=== PATIENT | male | born 1955 | race Caucasian/White ===

== ENCOUNTER 2019-06-01 11:39 | Inpatient (IN) | payer OTHER ==
[2019-06-01] VITALS (23 sets, daily range): BP systolic 76–106; BP diastolic 31–61
[~2019-06-01] VITALS: Ht 177.8 cm; Wt 62.4 kg
--- NOTE | ~2019-06-01 | WRIGHTHP ---
[place], [place] PATIENT HISTORY AND PHYSICAL EXAM [id number] #: [id number] ROOM: 523 DOCTOR: CHER BREEN MD BIRTHDATE: [birth year] DOS: 06/01/2019 GASTROENDOSCOPIC REPORT HISTORY: The patient is a 63-year-old male patient who has presented with multiple medical problems and profound anemia was one. He was addressed with endoscopic assessment. He was in ICU for several days. Monitor and aggressive ulcer therapy was undertaken. His reticulocytosis was 5.3, corresponding with his anemia, transfusion has been undertaken stabilized now he is able to eat. He was transferred to regular floor for further extension of the recovery. His colonoscopy, diverticulosis, upper GI endoscopy, gastric biopsy, esophagitis, gastritis, hiatal hernia, all have been recognized and has been treated. His cognition is very limited. His labs and records daily has been follow up. His latest H and H 9.8 and 30.9. Vancomycin trough was 1.8. Antral biopsies come back and gastritis. No H. pylori are present. REVIEW OF SYSTEMS: Cannot be meaningfully obtained from him. PHYSICAL EXAMINATION: HEENT: Within normal limits. Mouth free of esophageal ulcer, thrush. NECK: Supple, no thyromegaly, no cervical lymphadenopathy. CHEST: Symmetric anatomy, COPD pattern. HEART: Normal sinus rhythm. No gallop, no murmur. ABDOMEN: Soft. No hepato-organomegaly. Bowel sounds present. No pulsatile mass. EXTREMITIES: No cyanosis, clubbing or pedal edema. NEUROLOGIC: Alert and disoriented. LABORATORY DATA: Reviewed. Records reviewed. IMPRESSION: Profound anemia, status post transfusion; gastritis, diverticulosis, hiatal hernia, all has been recognized. Blood cultures have been negative. PLAN AND DISCUSSION PLAN AND DISCUSSION: We are going to continue with PPI therapy chronically on him. Supportive feeding, addition of Ensure, increasing diet to soft diet undertaken today. His brother is managing his affairs and he is going to be advised of additional improvement in diet was organized. [place], [place] PATIENT HISTORY AND PHYSICAL EXAM [facility]: [id number] UN[facility] #: [id number] ROOM: 523 DOCTOR: CHER BREEN MD BIRTHDATE: [birth year] CHER BREEN MD CM:PHYS:PATIENT HISTORY AND PHYSICAL EXAMINATION 1547 10 CHER BREEN MD 06/08/19 1610 interface
--- NOTE | ~2019-06-01 | CON ---
[place], [place] REPORT OF CONSULTATION NAME: LAWSON GARCÍA UNIT #: [id number] ROOM: [facility] DOCTOR: CHER BREEN MD BIRTHDATE: [birth year] DOS: 06/01/2019 GASTROENDOSCOPIC REPORT HISTORY OF PRESENT ILLNESS: A 63-year-old gentleman who has presented apparently brought in by family and he has not been leaving his house. He has never seen a physician. He is taken care of by his brother at home, in extremely poor condition. He underwent a panel of blood work and was found to have hemoglobin of 5 and he is getting transfusion of packed cells. I have been consulted in this regard. The patient is noncommunicative and apparent medical data is very limited. PAST MEDICAL HISTORY: Unknown. PAST SURGICAL HISTORY: Unknown. SOCIAL HISTORY: Apparently, smoker. FAMILY HISTORY: Brother who is taking care of him. ALLERGIES: No known allergies. REVIEW OF SYSTEMS: At all cannot be communicated with him. PHYSICAL EXAMINATION: GENERAL: Reveals very ungroomed patient. VITAL SIGNS: Borderline hypotension is noticed. HEENT: Benign, extremely poor hygiene. LUNGS: No wheeze, no rhonchi. HEART: Normal sinus rhythm at the present time. ABDOMEN: Soft, appears to be. EXTREMITIES: No cyanosis, no pedal edema noticed. NEUROLOGIC: Alert and incoherent. No communication meaningfully. LABORATORY DATA: Labs and records reviewed. He is receiving transfusion. Urine for a screening of the drug was negative. Chest x-ray remained no acute pathology. CPK-MB normal. CBC: White blood cell 6, H and H of 5.6 and 19 with platelet count of 245. Comprehensive metabolic panel, renal insufficiency. BUN and creatinine 33 and 1.8. GFR of 44, potassium of 3.1, being addressed with supplementation. Liver function tests appeared to be normal. Labs reviewed, records reviewed. IMPRESSION: Profound anemia, etiology unknown. PLAN AND DISCUSSION: We are going to proceed with stabilization of this patient. I very much doubt if he is going to be compliant for cleansing enemas and such to have an evaluation endoscopically done; however, we are going to obtain a magnesium and phosphorus with this a.m. blood work. We are going to organize an EGD and colonoscopy perhaps and if that happens that we can do an EGD and colonoscopy, we may have been answer to his GI blood loss, concern, [place], [place] REPORT OF CONSULTATION NAME: LAWSON GARCÍA UNIT #: [id number] ROOM: [facility] DOCTOR: JAMSHID JACOBO,CHER BIRTHDATE: [birth year] i.e., peptic ulcer disease, occult malignancy or otherwise. CHER BREEN MD CM:CONSTR:REPORT OF CONSULTATION 04 06/02/19 0037 interface
--- NOTE | ~2019-06-01 | O ---
[place], [place] OPERATIVE NOTE NAME: LAWSON GARCÍA UNIT #: [id number] ROOM: [facility]- DOCTOR: JAMSHID JACOBO,CHER BIRTHDATE: [birth year] DOS: 06/03/2019 GASTROENDOSCOPIC REPORT HISTORY OF PRESENT ILLNESS: A 63-year-old patient who has presented with multiple medical problems, among which has been profound anemia. At the time of admission, his H and H was 5 and 19, status post transfusion and improvement. The patient with compromised cognitive capabilities last H and H post-transfusion 75 and 25. PROCEDURE: Today's procedure part of investigation is panendoscopy and colonoscopy. PREMEDICATION: Propofol, ketamine. SCOPE: Olympus forward-viewing gastroscope Q10 video. REPORT: After putting the patient in left lateral position and application of lubricant to the scope, the scope was introduced. Thereafter, under direct visualization, advanced through the length of esophagus without difficulty. Distal esophagitis secondary to reflux was noticed. Gastric pouch was entered. Hiatal hernia seen. Gastritis seen. Antral biopsy was obtained. Duodenal bulb, second and third part within normal limit. Air was suctioned out. The patient was extubated, tolerated the procedure well. IMPRESSION: Distal esophagitis, hiatal hernia, gastritis, status post biopsy. PLAN AND DISCUSSION: Protonix 40 mg daily, regular diet, clinical reassessment. CHER BREEN MD CM:OPRECORD:OPERATIVE NOTE 1433 1533 CHER BREEN MD 06/03/19 1533 interface
--- NOTE | ~2019-06-01 | CON ---
[place], [place] REPORT OF CONSULTATION NAME: LAWSON GARCÍA UNIT #: [id number] ROOM: 523 DOCTOR: OANH HUITRON MD BIRTHDATE: [birth year] DOS: 06/04/2019 ADDENDUM I agree with the assessment and plan made by the nurse practitioner, Fanny Rain. Transient fever. Follow the blood cultures and his urine cultures. Follow CBC with differential. Reviewed the labs and imaging, made the necessary changes in the note. Oanh Huitron MD CM:CONSTR:REPORT OF CONSULTATION 1623 06/09/19 0441 interface
--- NOTE | ~2019-06-01 | EKG ---
[place], [place] ELECTROCARDIOGRAM REPORT NAME: LAWSON GARCÍA UNIT #: [id number] ROOM: [facility] DOCTOR: MASSIMO DRAFT REPORT BIRTHDATE: [birth year] [facility] Test Date: 2019-06-01 Test Time: 13:27:23 Pat Name: LAWSON GARCÍA Department: Room: [facility] Gender: M Commercial Estimator: Krupa Monaco : 1955 Requested By: CRISTIANO CHUNG Order Number: [id number] Reading MD: Petra Mcnulty Measurements Intervals [place] Rate: 83 P: 66 FL: 144 QRS: 54 QRSD: 90 T: 61 QT: 488 QTc: 574 Interpretive Statements Sinus rhythm Minimal ST depression, anterolateral leads Prolonged QT interval No previous ECG available for comparison Electronically Signed On 06-02-2019 9:00:16 PDT by Petra Mcnulty CM:EKGRPT:ELECTROCARDIOGRAM REPORT 1327 0900 CRISTIANO KEYS DRAFT REPORT CRISTIANO CHUNG M.D.
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
--- NOTE | ~2019-06-01 | O ---
[place], [place] OPERATIVE NOTE NAME: LAWSON GARCÍA UNIT #: [id number] ROOM: [facility]- DOCTOR: JAMSHID JACOBO,CHER BIRTHDATE: [birth year] DOS: 06/03/2019 INDICATIONS: A 63-year-old patient who has presented with chief complaint of GI bleed, profound anemia, undergoing investigation. PROCEDURE: Today's procedure part of investigation is colonoscopy. PREMEDICATION: Propofol. SCOPE: Olympus forwarding colonoscope 10L video. DESCRIPTION OF PROCEDURE: After putting the patient in left lateral position and application of lubricant to the scope, the scope was introduced. Thereafter, under direct visualization, advanced through the length of colon with difficulty. Tortuosity of severe degree at hepatic flexure was noticed. However this overcame. Base of the cecum explored, appendiceal orifice identified, ileocecal valve was photographed. Cecum photographed. Air was suctioned out. The patient was extubated, tolerated the procedure well. IMPRESSION: Diverticulosis, rare tortuous colon, particularly at hepatic flexure, retained liquid stool all along the length of the colon with limiting visualization of detailed pathology. PLAN AND DISCUSSION: Resumption of feeding transfusion of another unit correction of potassium has isolated total bilirubin, most likely secondary to hematoma in the leg, partially and renal insufficiency, partially and possibility of bilirubin, chronic deficiency all has been recognized. CHER BREEN MD CM:OPRECORD:OPERATIVE NOTE 1433 1535 CHER BREEN MD 06/03/19 1534 interface
--- NOTE | ~2019-06-01 | CON ---
[place], [place] REPORT OF CONSULTATION NAME: LAWSON GARCÍA UNIT #: [id number] ROOM: [facility] DOCTOR: DENZEL HILTON,NOVEMBER BIRTHDATE: [birth year] DOS: 06/05/2019 HISTORY OF PRESENT ILLNESS: The patient is a 63-year-old male who was admitted from home on 06/01. He had been found by his cleaning service down on the floor with mental status change as well as a black tarry stool in his kitchen and extensive bruising, dehydration. He was also anemic. His admitting hemoglobin was 5.6. He underwent EGD and a colonoscopy, which demonstrated esophagitis, gastritis and hiatal hernia. He had originally been hypotensive that had improved and resolved. Yesterday, he developed tachycardia, again became hypotensive, had a fever of 101.4. He had had a few other low-grade temps during his hospitalization up to 100. He had a CT of the chest done yesterday, which did not demonstrate any infiltrates. He has been seen by Orthopedics due to his extensive ecchymosis that he was admitted with of the right thigh, right ankle and left knee. CT of the head with admission demonstrated chronic sinusitis of the right maxillary sinus, right ethmoid cells and bilateral sphenoid sinuses. CT of the right leg only demonstrated edema and likely contusion. CT of the abdomen and pelvis showed an enlarged prostate and some renal cysts. Lower extremity studies were negative for DVT. X-ray of the right ankle did not demonstrate any fracture. Most of these were the admitting radiologic studies that were ordered. ID is now consulted for the episode yesterday of fever, hypotension and tachypnea. He also became bradycardic this morning. He has been weaned from pressors and has improved clinically. He is alert, oriented to person, place and time and responsive, but a poor historian. He has had multiple blood cultures performed. Admitting blood cultures are negative. His MRSA screen was negative. Stool for occult blood on the was negative. UA was sent yesterday, which still showed urobilirubin, was negative for leukocyte esterase, has been sent for culture. His drug screen was clean when he was admitted. WBCs have been running fairly low this morning at 3.5 and they were originally 6.9 on admission. He had originally had acute kidney injury at the time of admission with a creatinine of 1.89, which has improved to 0.94. Vancomycin, Zosyn, and Levaquin were started yesterday empirically again due to fever and hypotension, concern for sepsis. He has a PICC line that was just placed on the . Patient himself is alert, responsive, again is a poor historian, but he denies pain currently. He does urinate frequently, some question as to whether or not that is painful. Some of his answers are inconsistent. His urine has been dark per nursing and he passes approximately 100 mL at a time. He had bladder scan done, which does not demonstrate any significant post-void residual. He denies nausea or vomiting. Denies diarrhea. Little cough, no shortness of breath. After the fever yesterday of 101.4, he has had no further fevers, no rashes. He does have extensive ecchymosis that he is not sure how he got. The staff has assumed that he fell at home. PAST MEDICAL HISTORY: None other than tobacco abuse. PAST SURGICAL HISTORY: None. SOCIAL HISTORY: He lives alone, has cleaning service come in. He has a brother who assists him and bring him his cigarettes. Nursing states that they have been told he smokes 3-4 packs of cigarettes per day. The patient states he does not smoke more than a pack a day. Denies any alcohol use or illicit drug use. [place], [place] REPORT OF CONSULTATION NAME: LAWSON GARCÍA UNIT #: [id number] ROOM: [facility] DOCTOR: DENZEL HILTON,NOVEMBER BIRTHDATE: [birth year] FAMILY MEDICAL HISTORY: Parents are , cause unknown. ALLERGIES: No known drug allergies. CURRENT MEDICATIONS: Include vancomycin, Zosyn, Levaquin, Tylenol, DuoNebs, vitamin D, folic acid, Ativan, Nicoderm patch, Zofran, morphine, Tylenol p.r.n. LABORATORY DATA: Cultures as reviewed above. Total bilirubin 2.9, direct bilirubin 1.2, indirect bilirubin 1.7. WBCs 3.5, platelets 98, neutrophils 66.4. BUN 12, creatinine 0.94. LFTs within normal limits. Alkaline phosphatase 65. REVIEW OF SYSTEMS: Limited. The patient is responsive for most questions, though difficult to obtain history from. Seems to have some underlying psychiatric disorder or even possibly along the lines of autistic spectrum. PHYSICAL EXAMINATION: VITAL SIGNS: Temperature 98.8, pulse 58, respirations 22, BP 93/46. GENERAL: A 63-year-old male, in no acute distress, alert, responsive, lying in bed. HEAD, EYES, EARS, NOSE AND THROAT: Normocephalic, atraumatic. Pupils equal, round and reactive to light. Nares, no drainage. THROAT: No exudates. No thrush. Edentulous. NECK: Supple. LUNGS: Clear to auscultation bilaterally. Respirations even and unlabored. HEART: Regular rhythm. No murmur appreciated. ABDOMEN: Soft, nondistended, nontender. Positive bowel sounds. EXTREMITIES: +1 edema bilateral lower extremities, extensive ecchymosis of the right thigh as well as right ankle and left knee. No signs of erythema or cellulitis. No open wounds. SKIN: Warm, dry, free of rashes, pale, nonicteric. ASSESSMENT AND PLAN: Fever x 1, which has not recurred. He is currently on broad spectrum antibiotics pending cultures. Urine has been reflex to culture. He does urinate frequently. Seems to be inconsistent with whether or not he is having pain with urination. Blood cultures are pending. We will continue the broad spectrum antibiotics pending culture results. NOVEMBER YOBANI MAHONEY [place], [place] REPORT OF CONSULTATION NAME: LAWSON GARCÍA UNIT #: [id number] ROOM: [facility] DOCTOR: DENZEL HILTON BIRTHDATE: [birth year] Oanh Parmar MD CM:CONSTR:REPORT OF CONSULTATION 1506 06/05/19 1524 interface
[2019-06-01 12:36] LABS: MEAN CORPUSCULAR HGB 28.3 pg (27.0-31.0); MEAN CORPUSCULAR HGB CONC 28.6 g/dl (33.0-37.0); MEAN PLATELET VOLUME 11.1 fl (9.6-12.3); NUCLEATED RED BLOOD CELL 0.4 % (0.0-0.0); PLATELET COUNT AUTOMATED 248 10*3/uL (130-400); RED BLOOD COUNT 1.98 10*6/uL (4.50-5.90); RED CELL DISTRI WIDTH 18.3 % (0-14.5); WHITE BLOOD COUNT 6.9 10*3/uL (4.8-10.8)
[2019-06-01 12:52] LABS: ALBUMIN 2.8 gm/dl (3.1-4.5); CREATININE 1.89 mg/dL (0.70-1.30); POTASSIUM 3.1 mmol/L (3.5-5.1); TOTAL PROTEIN 7.2 gm/dL (6.4-8.2)
[2019-06-01 12:55] LABS: TOTAL CELLS COUNTED 100 #CELLS
[2019-06-01 12:56] LABS: PLATELET SUFFICIENCY NORMAL (NORMAL); POLYCHROMASIA SLIGHT
[2019-06-01 12:57] LABS: HEMOGLOBIN 5.6 g/dl (14.0-18.0)
[2019-06-01 12:58] LABS: HEMATOCRIT 19.6 % (42.0-52.0)
--- NOTE | 2019-06-01 12:58 | NUR ---
DR CHUNG NOTIFIED OF PT'S H&H @ 5.6 & 19.6 PER LAB.
--- NOTE | 2019-06-01 14:15 | NUR ---
A 63yr old male, admitted to ICCU, under the services of ELISHA Clemens DO with a diagnosis of Anemia. Chief complaint is found at home with feces on the floor, ecchymosis all over body, rt leg > left. Patient arrived via stretcher from ER. Monitor applied. Initial assessment completed. Vital signs taken and recorded. See assessment for past medical history, medications and allergies. Patient and/or family oriented to unit. [facility] visitation policy reviewed. Clothing/patient valuable form completed. HANG LYNCH
--- NOTE | 2019-06-01 15:08 | NUR ---
Occupational therapy orders received as well as nursing screen. Patient's chart has been reviewed. Will follow up with patient when appropriate for completion of the OT evaluation and POC. Thank you. Monica Sarabia, OTR/L
--- NOTE | 2019-06-01 15:16 | NUR ---
PATTIE AND DR SANTOS'S COMMERCIAL CONSTRUCTION PROJECT MANAGER BOTH INFORMED THAT STAT COMPETENCY EVAL IS REQUIRED. PT IS REFUSING TO GIVE CONSENT FOR BLOOD TRANSFUSION AT THIS TIME, IN SPITE OF HIS PAPER BAG MACHINE OPERATOR AND BROTHER TALKING TO HIM, ATTEMPTING TO CONVINCE HIM.
--- NOTE | 2019-06-01 15:21 | NUR ---
Spoke with Katarina Ordonez [facility] regarding competency. Katarina stated the courts do not recognize competency evaluations from MANAGER MONITORING, it must be psycologist or physician. She also stated, ethically, you can give life saving treatment is if is a life threatening sitation. If the situation is "urgent" and he is stating he does not want treatment, and has not been deemed incompetent, you cannot proceed with treatment.
--- NOTE | 2019-06-01 16:06 | NUR ---
DR SANTOS HERE TO SEE PATIENT.
[2019-06-01 16:44] LABS: BILIRUBIN 3+ (NEGATIVE); BLOOD NEGATIVE (NEGATIVE); CLARITY SL CLOUDY (CLEAR); GLUCOSE NEGATIVE (NEGATIVE); KETONE NEGATIVE (NEGATIVE); LEUKO ESTERASE TRACE (NEGATIVE); NITRITE POSITIVE (NEGATIVE); PH 5.5 (5.0-9.0); SPECIFIC GRAVITY 1.015 (1.005-1.030); UROBILINOGEN >= 8.0 E.U./dl (0.2-1.0)
[2019-06-01 16:48] LABS: COLOR ORANGE (YELLOW)
[2019-06-01 16:52] LABS: MUCOUS 1+
[2019-06-01 16:54] LABS: URINE AMPHETAMINES < 1000 (1000ng/ml); URINE BARBITURATES < 200 (200ng/ml); URINE BENZODIAZEPINES < 200 (200ng/ml); URINE CANNABINOIDS (THC) < 50 (50ng/ml); URINE COCAINE < 300 (300ng/ml); URINE METHADONE < 300 (300ng/ml); URINE OPIATES < 300 (300ng/ml)
[2019-06-01 16:58] LABS: URINE PHENCYCLIDINE < 25 (25ng/ml)
--- NOTE | 2019-06-01 17:23 | NUR ---
SEE spoke with the patients brother Marc Branch about DPOA-HC. Patients brother stated that he was appointed to be a financial service representative for the patient but not DPOA-HC. He stated that in the event the patient was deamed incompetent he would gladly step in and make the decisions for the patient. HEARING AID ASSEMBLY SUPERVISOR explained to him that Dr. Medrano and Katarina Ordonez were both notified of needing a competency evaluation. HEARING AID ASSEMBLY SUPERVISOR explained that Katarina had stated she is unable to do that. HEARING AID ASSEMBLY SUPERVISOR explained again the Dr. Medrano was notified and aware. Patients brother understood. SEE spoke with Dr. Wells about the hospital policy about designating a Healthcare Surrogate Selection. Per Inpatient Director this policy is in effect. SEE provided Dr. Wells with a copy of this policy if it is needed. SEE to follow respectively. -SEE Shea
--- NOTE | 2019-06-01 18:13 | NUR ---
PACKED CELLS [id number] CHECKED BY MYSELF AND SARAH PHOENIX. STARTED AT KVO RATE AND PT IN CONSTANT ATTENDANCE. NO APPARENT REACTION. INFUSION RATE INCREASED TO 150/HR.
--- NOTE | 2019-06-01 18:23 | NUR ---
DR MEJIA NOTIFIED OF CONSULTATION.
--- NOTE | 2019-06-01 18:39 | NUR ---
DR MEJIA HAS BEEN NOTIFIED OF CONSULTATION. PALLIATIVE CARE CONSULT CALLED.
--- NOTE | 2019-06-01 19:11 | NUR ---
PT WOULD ONLY DRINK 1 TO 2 SIPS OF READICAT. HE WAS ACCOMPANIED TO RADIOLOGY FOR MULTIPLE CT'S. TOLERATED WELL. TRANSFUSION CONTINUING WITHOUT SIGNS OF REACTION.
--- NOTE | 2019-06-01 19:15 | NUR ---
DR BREEN HAS BEEN NOTIFIED OF CONSULTATION.
--- NOTE | 2019-06-01 22:00 | NUR ---
PATIENT BATHED AFTER BEING INCONTINENT OF STOOL AND URINATING ON THE FLOOR.
[2019-06-02] VITALS (42 sets, daily range): BP systolic 80–120; BP diastolic 40–90
--- NOTE | 2019-06-02 03:11 | NUR ---
PATIENT WAS INCONTINENT OF LOOSE STOOL.
--- NOTE | 2019-06-02 04:33 | NUR ---
PATIENT IS INCONTINENT OF BOWEL AND BLADDER PATIENT HAS BEEN ENCOURAGED TO CALL FOR HELP BUT HE REFUSES HE TURNS ON HIS RIGHT SIDE AND URINATES OFF THE SIDE OF THE BED. THE PATIENT IS NOTED TO HAVE 2 URINALS IN THE BED WITH HIN ONE ON HE SIDE WITHIN REACH. PATIENT ALSO WAS INCONTINENT OF LOOSE STOOL SMALL AMOUNTS PATIENTS ENTIRE BED WAS CHANGED AT THIS TIME. AND PATIENT WAS AGAIN MADE OF AWARE OF WHERE HIS URINALS ARE AND ARE IN VIEW AND REACH OF BOTH OF THEM.
[2019-06-02 06:12] LABS: ALBUMIN 2.7 gm/dl (3.1-4.5); BUN 26 mg/dl (7-24); CHLORIDE 107 mmol/L (98-107); CHOLESTEROL 79 mg/dL (<200); CREATININE 1.24 mg/dL (0.70-1.30); PHOSPHOROUS 2.3 mg/dL (2.5-4.9); POTASSIUM 2.9 mmol/L (3.5-5.1); SGOT/AST 14 IU/L (3-35); SGPT/ALT 15 U/L (12-78); SODIUM 138 mmol/L (136-145); TOTAL PROTEIN 5.9 gm/dL (6.4-8.2); TRIGLYCERIDES 161 mg/dl (<150); VLDL CHOLESTEROL 32 mg/dL (6-40)
[2019-06-02 06:19] LABS: ALKALINE PHOSPHATASE 74 U/L (45-117); HDL CHOLESTEROL 14 mg/dl (40-60); LDL CHOLESTEROL 33 mg/dL (9-159)
[2019-06-02 07:17] LABS: HEMATOCRIT 22.8 % (42.0-52.0); MEAN CORPUSCULAR HGB 27.5 pg (27.0-31.0); MEAN CORPUSCULAR HGB CONC 30.3 g/dl (33.0-37.0); MEAN PLATELET VOLUME 11.1 fl (9.6-12.3); NUCLEATED RED BLOOD CELL 0.4 % (0.0-0.0); PLATELET COUNT AUTOMATED 181 10*3/uL (130-400); RED BLOOD COUNT 2.51 10*6/uL (4.50-5.90); RED CELL DISTRI WIDTH 21.2 % (0-14.5); WHITE BLOOD COUNT 5.1 10*3/uL (4.8-10.8)
[2019-06-02 07:26] LABS: MEAN CELL VOLUME 90.8 fl (80.0-94.0)
--- NOTE | 2019-06-02 07:30 | NUR ---
Alert, oriented to self, knows he is in [place] and today is does not make eye contact, speech is rambling about multiple things, stating this is the ambulances bed and it must go back, he does not know the president cause "i dont watch tv" does not know the next holiday, can not verbalize what to eat on "thanskgiving Dr Ruff called with am labs, nad is insisting that staff cut all his hair and shave him as because it it an infection risk pt has dark purple bruising encircling his right thigh, multiple other scattered bruised areas levaphed has been turned off for map>70 PICC consent given by brother
[2019-06-02 07:39] LABS: TOTAL CELLS COUNTED 100 #CELLS
[2019-06-02 07:40] LABS: PLATELET SUFFICIENCY NORMAL (NORMAL); POLYCHROMASIA SLIGHT
[2019-06-02 07:42] LABS: HEMOGLOBIN 6.9 g/dl (14.0-18.0)
[2019-06-02 08:34] LABS: VITAMIN D, 25-HYDROXY 10.3 ng/mL (30-100)
--- NOTE | 2019-06-02 08:57 | NUR ---
PT REFUES TO TAKE POTASSIUM PO SPIT OUT THE DOCULAX ( COLO PREP) REFUSES TO TAKE ANYTHING BUT JUST A FEW SIPS OF JUICE/GINGERALE
--- NOTE | 2019-06-02 08:58 | NUR ---
THIRD RBC STARTED
--- NOTE | 2019-06-02 09:30 | NUR ---
zofran for c/o occ nausea has been effective
--- NOTE | 2019-06-02 09:40 | NUR ---
PTS THREE CLEANING LADIES ARE HERE AND THEY HAVE TALKED TO PT ABOUT GETTING HIS HAIR CUT AND SHAVING, PT AGREEABLE TO BOTH, THE MATTED HAIR HAS BEEN CUT OFF, PT IS CONTENT AND IS NOW WANTING TO TAKE A NAP
--- NOTE | 2019-06-02 10:00 | NUR ---
Team Lead in to see patient with palliative care nurse. Patient's speech is non-sensical. Deborah Chaves, palliative care nurse practitioner, will follow with patient on Thursday. acoustical material worker following.
--- NOTE | 2019-06-02 10:16 | NUR ---
SPEECH PATHOLOGY Orders for modified barium swallow study received. Chart review completed. Clinician was informed by radiology that MBS was canceled due to patient having another test and having to be NPO/liquid diet. Will attempt MBS on later date. Thank you for this referral. Rodger Bautista MA [facility]-CONTINUOUS PROCESS COFFEE ROASTER
--- NOTE | 2019-06-02 10:30 | NUR ---
BROTHER AMY IS HERE TO VISIT, UPDATED ON HAIRCUT, BROTHER IS MORE THAN HAPPY ABOUT THE HAIR CUT AND THE LADIES WANTING TO SHAVE PT WHEN THEY RETURN TONIGHT, WHICH [place] IS AGREEABLE TO , PER AMY "DO WHATEVER HE WANTS TO DO WITH HIS HAIR AND ANDRE" BROTHER UPDATED ON PTS LABS/TOMORROWS PROCEDURE
--- NOTE | 2019-06-02 10:39 | NUR ---
Per Discharge meeting today, it was expressed from Dr. Kc that he was told our facility could do anything to help the patient but cut his hair. LABORER ELECTROPLATING returned from the Discharge meeting and was notified of the patients hair being cut by the Nurse. The patient has been deamed incompetent and the patients brother Marc is to make the decision for the patient at this time. LABORER ELECTROPLATING spoke with Ekta about the situation and she stated "Arrest Me". LABORER ELECTROPLATING explained that was not the LABORER ELECTROPLATING intention but the brother should have the decision to cut the hair not the patient nor his cleaning ladies who were at beside. LABORER ELECTROPLATING asked if the brother was contacted and Ekta stated "No". LABORER ELECTROPLATING reached out to the brother to inform him of this and left a message for return call. LABORER ELECTROPLATING reached out to RN Supervisior Ilsa and informed her of the situation. LABORER ELECTROPLATING reached out to Dr. Kc, and Dr. Jorgensen answered LABORER ELECTROPLATING infomred her of the sitution as well. RN Hospitalist Coordinator-Ashley is also aware. -SEE Shea LSW
--- NOTE | 2019-06-02 12:34 | NUR ---
SEE was able to speak with the patient brother as the patients brother was on his way out the buliding. Marc stated he was okay with the patients hair being cut and that he does look better. Marc stated that if the patient is okay with his montes being cut that would be fine, but he will not force his brother to do so unless there is a medical reason behind it. -SEE Shea
[2019-06-02 13:10] LABS: BASO % 0.4 % (0.0-1.0); EOS # 0.1 10*3/uL (0.0-0.4); EOS % 2.6 % (1.0-4.0); HEMATOCRIT 24.2 % (42.0-52.0); HEMOGLOBIN 7.7 g/dl (14.0-18.0); LYMPH # 0.9 10*3/uL (1.3-4.4); LYMPH % 19.3 % (27.0-41.0); MEAN CELL VOLUME 88.3 fl (80.0-94.0); MEAN CORPUSCULAR HGB 28.1 pg (27.0-31.0); MEAN CORPUSCULAR HGB CONC 31.8 g/dl (33.0-37.0); MEAN PLATELET VOLUME 10.2 fl (9.6-12.3); MONO # 0.3 10*3/uL (0.1-1.0); MONO % 6.3 % (3.0-9.0); NEUT # 3.3 10*3/uL (2.3-7.9); NEUT % 70.8 % (47.0-73.0); NUCLEATED RED BLOOD CELL 0.4 % (0.0-0.0); PLATELET COUNT AUTOMATED 151 10*3/uL (130-400); RED BLOOD COUNT 2.74 10*6/uL (4.50-5.90); RED CELL DISTRI WIDTH 20.8 % (0-14.5); WHITE BLOOD COUNT 4.6 10*3/uL (4.8-10.8)
--- NOTE | 2019-06-02 13:20 | NUR ---
1 mg iv ativan prior to picc insertion
--- NOTE | 2019-06-02 13:28 | NUR ---
Nursing screen received and occupational therapy evaluation received. Thank you. Licha Robert OTR/L
--- NOTE | 2019-06-02 14:00 | NUR ---
Occupational Therapy evaluation completed in [facility]U with full eval to follow. Precautions include fall risk; bed/chair alarm,clear liquid diet,POINT LAY IRA,impaired cognition,poor sit and stand balance,forward flexed head/neck,high complexity level 12928. Recommend OT per pOC and SNF to enable max ability to function. Thank you. Brielle Robert OTR/l
--- NOTE | 2019-06-02 14:00 | NUR ---
TOLERATED PICC PLACEMENT WELL
--- NOTE | 2019-06-02 16:10 | NUR ---
BROTHER HERE, PT AND BROTHER ARE ARGUEMENTIVE WITH EACH OTHER AT TIMES, PT SAYS HIS HEAD FEELS COLD, BROTHER WILL BRING IN A KNIT CAP TOMORROW SURGICAL BONNET PLACED, PT BROTHER PT IS AWAYS COLD
--- NOTE | 2019-06-02 18:21 | NUR ---
PT TOOK ONE BOTTLE OF POWERADE WITH MIRALAX AND FEELS "TOO FULL" TO DRINK ANY MORE AT THIS TIME
--- NOTE | 2019-06-02 23:30 | NUR ---
PATIENT WILL NOT DRINK ANYMORE OF THE MIRALAX PREP FOR COLO SAID HIS BELLY WAS TO FULL ALREADY.
[2019-06-03] VITALS (36 sets, daily range): BP systolic 71–106; BP diastolic 32–56
--- NOTE | 2019-06-03 04:03 | NUR ---
PATIENT BATHED AND FLEETS ENEMA GIVEN AND FOLLOWED BY TAP WATER ENEMA'S TILL CLEAR. PATIENT DID NOT TOLERATE WELL AND WAS YELLING AFTER FINISHED THE PATIENT CALMED DOWN AND WENT RIGHT TO SLEEP.
[2019-06-03 05:02] LABS: ALBUMIN 2.5 gm/dl (3.1-4.5); ALKALINE PHOSPHATASE 71 U/L (45-117); BUN 21 mg/dl (7-24); CHLORIDE 106 mmol/L (98-107); CREATININE 1.19 mg/dL (0.70-1.30); POTASSIUM 3.2 mmol/L (3.5-5.1); SGOT/AST 14 IU/L (3-35); SGPT/ALT 16 U/L (12-78); SODIUM 137 mmol/L (136-145); TOTAL PROTEIN 5.7 gm/dL (6.4-8.2)
--- NOTE | 2019-06-03 05:45 | NUR ---
PATIENT RECIEVED ANOTHER TAP WATER ENEMA. PATIENT TOLERATED THIS ONE BETTER. PATIENT HAS RECIEVED THREE ALL TOGETHER.
[2019-06-03 06:26] LABS: BASO % 0.2 % (0.0-1.0); EOS # 0.1 10*3/uL (0.0-0.4); EOS % 1.2 % (1.0-4.0); HEMATOCRIT 24.5 % (42.0-52.0); HEMOGLOBIN 7.5 g/dl (14.0-18.0); LYMPH # 0.7 10*3/uL (1.3-4.4); LYMPH % 17.2 % (27.0-41.0); MEAN CELL VOLUME 90.4 fl (80.0-94.0); MEAN CORPUSCULAR HGB 27.7 pg (27.0-31.0); MEAN CORPUSCULAR HGB CONC 30.6 g/dl (33.0-37.0); MEAN PLATELET VOLUME 11.3 fl (9.6-12.3); MONO # 0.3 10*3/uL (0.1-1.0); MONO % 6.6 % (3.0-9.0); NEUT # 3.2 10*3/uL (2.3-7.9); NEUT % 74.1 % (47.0-73.0); PLATELET COUNT AUTOMATED 149 10*3/uL (130-400); RED BLOOD COUNT 2.71 10*6/uL (4.50-5.90); RED CELL DISTRI WIDTH 20.7 % (0-14.5); WHITE BLOOD COUNT 4.3 10*3/uL (4.8-10.8)
--- NOTE | 2019-06-03 08:09 | NUR ---
ON ASSESSMENT PT AROUSES EASILY TO HIS NAME. ABLE TO TELL ME HE'S "IN HOSPITAL". DENIES PAIN OR SHORTNESS OF BREATH. PT REMAINS NPO FOR EGD/COLO THIS AM. SKIN IS WARM AND DRY. PT VOIDED 150ML DRK TEA COLORED URINE IN URINAL. MULTIPLE AGED ECCHYMOSIS CONTINUES. PICC LINE INTACT RT UPPER ARM. PT'S AUTOMATIC BP 71/32, CHECKED MANUALLY 80/40. DR QUINTANILLA(RESIDENT) NOTIFIED. NORMAL SALINE 1OOO ML BAG UP TO INFUSE 500ML OVER 30 MINUTES. BED IS IN LOW POSITION WITH WHEELS LOCKED, URINALS AVAILABLE BOTH SIDES OF THE BED. SEE ALL APPROPRIATE INTERVENTIONS.
--- NOTE | 2019-06-03 08:47 | NUR ---
BP > 90 SYSTOLIC AFTER [address]ML [address] CABALLERO HAS VISITED. IV FLUIDS TO CONTINUE AT 100ML/HR.
--- NOTE | 2019-06-03 08:58 | NUR ---
PHYSICAL THERAPY HERE. HAS PT STANDING AT THE SIDE OF THE BED, MARCHING, WITHOUT ANY SIGNS OF DIZZINESS. PT HAS RAMBLING CONVERSATION.
--- NOTE | 2019-06-03 09:00 | NUR ---
PHYSICAL THERAPY Patient seen this am 1:1 for therapy visit and was resting supine in bed upon therapist arrival. Patient identified by name / and presented with HR 64 bpm, continuous IV treatment. Patient voices no c/o's pain at this time and transfers supine to sit EOB with MOD A x 1. Patient tolerated static EOB sit x several minutes to collect himself, demonstrating forward flexed head posture and rounded shoulders. Patient needed v/c to correct seated posture, however was only able to maintain upright position for < 20 seconds. Patient performed several sit to stand transfers at bedside, MOD A, use of wh walker standing support, tolerating 1 minute 30 seconds static stand first attempt and 2 minutes on second trial, CGA X 1. Patient c/o of mild B foot pain following standing activity and returned to supine in bed, MIN A. Patient remained in bed with call light, tray table and bed alarm for safety. Patient HR increased to 82 bpm during treatment and returned to baseline after 1 minute supine rest. Will continue per POC as tolerated, total treatment time 14 minutes. Loc Gordon, SPORTS EQUIPMENT REPAIRER
--- NOTE | 2019-06-03 09:08 | NUR ---
OT NOTE Pt was seen this A.M. 1:1 for 17 minute OT session. Upon arrival pt was supine in bed. Pt identified by name and and had no complaints at this time. Pt transferred supine to sit EOB with Roxanna. Sit to stand completed from bed level with modA and use of w/w for UE support. Challenged pt's static standing tolerance needed for increased I in self care tasks and functional transfers, pt was able to tolerate aprox 2 minutes at a time before sitting due to fatigue. Throughout pt required constant verbal prompts for correcting posture and picking his head up. Throughout entire session pt was rambling on in conversation. Pt then transferred back into bed sit to supine with Roxanna. There he was left with call light in hand, tray table in place, and bed alarm activated for safety. Continue with rec D/C plan to SNF. ANDREA Conrad/Flip
--- NOTE | 2019-06-03 09:09 | NUR ---
SPEECH THERAPY Patient remains NPO this AM for EGD/colo scheduled for this date. Orders for MBS were confirmed by patient's nurse. MBS to be completed at different time/day as appropriate. Jessica Bennett MA, CCC-COAL DIGGER
--- NOTE | 2019-06-03 09:25 | NUR ---
ACID TANK LINER reached out to the patients brother to inquire about SNF placement. ACID TANK LINER left message for return call. -SEE Shea
--- NOTE | 2019-06-03 09:37 | NUR ---
SEE received call back from the patients brother Marc. Marc stated that he would be in today at 11am to see the patient. He stated that he believes the patients goal is to return home. He stated he himself is receptive to the patient going to SNF but is not sure how the patient will do. When asked about HHC. He stated he is unsure but not unwilling to discuss it with the patient. REFRIGERATION INSTALLER reminded him that it is ultimately his decision. Patients brother stated we would talk more about SNF vs HHC when he arrives today. -SEE Shea
--- NOTE | 2019-06-03 11:20 | NUR ---
Shift chart check completed.24 HR chart check completed.
--- NOTE | 2019-06-03 11:51 | NUR ---
BROTHER HAS ARRIVED. HE AND PT ARGUE ABOUT DRINKING ANY FLUIDS TILL TEST IS DONE. THERE ARE NO FLUIDS IN PT'S ROOM.
--- NOTE | 2019-06-03 12:29 | NUR ---
ORGAN TUNER ELECTRONIC spoke with the patients brother and two of his friends. Patients brother wants the patient to go home with [place], [place] with a specific request for Abigail Hummel. Abigail Hummel is his friend and Cleaning lady already. Due to the patients introvert tendency [facility] would be best for him per the brother. Patients brother asked for additional information on Passport Services, Delivered Meals, and Senior Services. ORGAN TUNER ELECTRONIC will reach out to the patients insurance to see if he has any meal benefits. Power Generation Plant Operator to follow. -SEE Shea
--- NOTE | 2019-06-03 12:45 | NUR ---
PT TO SURGERY VIA BED WITH SURGERY PERSONNEL. FAMILY TO 3RD FLOOR SURGERY AREA.
--- NOTE | 2019-06-03 14:02 | NUR ---
SEE reached out Patients Insurance and spoke with Shaista. She stated the patient does not have any food benefits. She stated that the patient would have to contact the [place] Dept f Medicaid ([phone]) and then they could appoint a Social Services Coordinator to the patient who would then be able to assist the patient with obtaining food if needed. SEE attempted to reach out ot the [place] Dept of Medicaid and was not successful to see if the patient already had a Social Services Coordinator. IMMIGRATION PATROL INSPECTOR will inform the patients brother. Patients brother has been given information on Passport Services, Senior Services, and Meals on Wheels information. -SEE Shea
--- NOTE | 2019-06-03 14:42 | NUR ---
PHYSICAL THERAPY CO-SIGN I approve of the Physical Therapy notes written above. NEMO GUTHRIE, PT, DPT
--- NOTE | 2019-06-03 15:45 | NUR ---
PT RETURNED FROM OR VIA BED. RECONNECTED TO MONITOR AND IV FLUIDS. PT DROWSY BUT COOPERATIVE. BED IN LOW POSITION WITH WHEELS LOCKED, SIDERAILS UP AND URINALS AVAILABLE ON BOTH SIDES.
--- NOTE | 2019-06-03 17:19 | NUR ---
PT ATE ABOUT 50% OF SOFT DIET FOR DINNER. TOLERATED WELL.
--- NOTE | 2019-06-03 20:00 | NUR ---
SPOKE WITH DR. BOUDREAUX REGARDING PATIENT'S HYPOTENSION THAT IS GETTING IVF WITH A HEOGLOBIN OF 7.5. PATIENT CONDITION, LABS, AND VITALS REVIEWED. ORDERS RECEIVED.
[2019-06-03 22:07] LABS: MEAN CELL VOLUME 90.6 fl (80.0-94.0); MEAN CORPUSCULAR HGB 28.3 pg (27.0-31.0); MEAN CORPUSCULAR HGB CONC 31.3 g/dl (33.0-37.0); MEAN PLATELET VOLUME 10.7 fl (9.6-12.3); PLATELET COUNT AUTOMATED 112 10*3/uL (130-400); RED BLOOD COUNT 2.12 10*6/uL (4.50-5.90); RED CELL DISTRI WIDTH 20.2 % (0-14.5); WHITE BLOOD COUNT 3.3 10*3/uL (4.8-10.8)
[2019-06-03 22:15] LABS: HEMATOCRIT 19.2 % (42.0-52.0)
--- NOTE | 2019-06-03 22:20 | NUR ---
DR. BOUDREAUX NOTIFIED OF CRITICAL LAB RESULTS OF H&H. ORDERS RECEIVED.
[2019-06-03 22:54] LABS: MICROCYTOSIS SLIGHT; PLATELET SUFFICIENCY LOW (NORMAL); TOTAL CELLS COUNTED 100 #CELLS
--- NOTE | 2019-06-03 22:55 | NUR ---
BLOOD TRANSFUSION INITIATED. PATIENT TOLERATING WELL. CALL LIGHT WITHIN REACH.
--- NOTE | 2019-06-03 23:30 | NUR ---
SPOKE WITH DR. MAYO AND DR. BOUDREAUX. ORDERS RECEIVED TO TRANSFUSE ALL 3 UNITS OF PRBC TONIGHT.
[2019-06-04] VITALS (31 sets, daily range): BP systolic 80–110; BP diastolic 40–63
--- NOTE | 2019-06-04 01:09 | NUR ---
BLOOD TRANSFUSION UNIT # 4 COMPLETED. PATIENT TOLERATED WELL. BLOOD PRESSURES HAVE IMPROVED.
[2019-06-04 07:38] LABS: BASO % 0.3 % (0.0-1.0); EOS # 0.1 10*3/uL (0.0-0.4); EOS % 1.7 % (1.0-4.0); HEMATOCRIT 28.8 % (42.0-52.0); HEMOGLOBIN 9.2 g/dl (14.0-18.0); LYMPH # 0.6 10*3/uL (1.3-4.4); LYMPH % 16.1 % (27.0-41.0); MEAN CORPUSCULAR HGB 29.4 pg (27.0-31.0); MEAN CORPUSCULAR HGB CONC 31.9 g/dl (33.0-37.0); MEAN PLATELET VOLUME 10.6 fl (9.6-12.3); MONO # 0.1 10*3/uL (0.1-1.0); MONO % 3.7 % (3.0-9.0); NEUT # 2.7 10*3/uL (2.3-7.9); NEUT % 77.1 % (47.0-73.0); PLATELET COUNT AUTOMATED 99 10*3/uL (130-400); RED BLOOD COUNT 3.13 10*6/uL (4.50-5.90); RED CELL DISTRI WIDTH 18.6 % (0-14.5); WHITE BLOOD COUNT 3.5 10*3/uL (4.8-10.8)
--- NOTE | 2019-06-04 07:44 | NUR ---
Shift chart check completed.
--- NOTE | 2019-06-04 07:44 | NUR ---
AM LABS DRAWN FROM PICC LINE WITHOUT DIFFICULTY. VSS. PT CO-OPERATIVE. MOIST NONPROD COUGH.
[2019-06-04 07:52] LABS: ALBUMIN 2.2 gm/dl (3.1-4.5); ALKALINE PHOSPHATASE 65 U/L (45-117); BUN 18 mg/dl (7-24); CHLORIDE 111 mmol/L (98-107); CREATININE 0.93 mg/dL (0.70-1.30); PHOSPHOROUS 1.9 mg/dL (2.5-4.9); POTASSIUM 3.8 mmol/L (3.5-5.1); SGOT/AST 20 IU/L (3-35); SGPT/ALT 14 U/L (12-78); SODIUM 139 mmol/L (136-145)
--- NOTE | 2019-06-04 09:21 | NUR ---
BATH DONE COMPLETE. PATIENT INCONTINENT FOR SMALL AMOUNT OF STOOL (LIGHT BROWN SOFT) AND BED IS WET (?URINE VS WATER.) RT INNER, OUTER & POSTERIOR THIGH TO ABOVE KNEE, RT ANKLE AND LEFT KNEE ECCHYMOTIC IN VARIOUS STAGES. DR ROA EXAMINED. TUBIGRIPS PLACED ON LEGS SCD FALL RISK D/T CLIMBS OUT OF BED, AND NAKITA HOSE TOO TIGHT & UPSETTING PATIENT. CHILD-LIKE DEMEANOR
--- NOTE | 2019-06-04 11:12 | NUR ---
SLEEPING AFTER BROTHER LEFT. STILL NOT WANTING TO EAT
--- NOTE | 2019-06-04 14:25 | NUR ---
PATIENT CONTINUES TO SLEEP BUT AROUSES EASILY, PT ENCOURAGED TO EAT/DRINK BUT NOT WANTING ANYTHING EXCEPT TO REST. IVF CONTINUE
[2019-06-04 15:07] LABS: BASO % 0.3 % (0.0-1.0); EOS # 0.1 10*3/uL (0.0-0.4); EOS % 2.2 % (1.0-4.0); HEMATOCRIT 28.6 % (42.0-52.0); HEMOGLOBIN 9.1 g/dl (14.0-18.0); LYMPH # 0.7 10*3/uL (1.3-4.4); MEAN CELL VOLUME 91.7 fl (80.0-94.0); MEAN CORPUSCULAR HGB 29.2 pg (27.0-31.0); MEAN CORPUSCULAR HGB CONC 31.8 g/dl (33.0-37.0); MONO # 0.2 10*3/uL (0.1-1.0); MONO % 4.7 % (3.0-9.0); NEUT # 2.2 10*3/uL (2.3-7.9); NEUT % 68.2 % (47.0-73.0); NUCLEATED RED BLOOD CELL 0.6 % (0.0-0.0); PLATELET COUNT AUTOMATED 103 10*3/uL (130-400); RED BLOOD COUNT 3.12 10*6/uL (4.50-5.90); WHITE BLOOD COUNT 3.2 10*3/uL (4.8-10.8)
--- NOTE | 2019-06-04 15:08 | NUR ---
DR JHA CALLED WITH ELEVATED TEMP 101.4 & RR RATE 28-30. PT CHILLS. REQUESTED PO TYLENOL & AEROSAL TREATMENTS TO ASSIST WITH LOOSENING UP MUCOUS.
--- NOTE | 2019-06-04 15:28 | NUR ---
DR PRATER CAME TO SEE THE PATIENT & REASSESS AFTER CHANGES CALLED. ORDERS RECEIVED FOR CT CHEST & ANTIBIOTICS. COIL CLEANER CALLED & UPDATED. DR MEJIA ALSO ROUNDED JUST PRIOR TO DR PRATER AND ASSESSED PATIENT
[2019-06-04 16:53] LABS: ALBUMIN 2.2 gm/dl (3.1-4.5); ALKALINE PHOSPHATASE 63 U/L (45-117); BUN 18 mg/dl (7-24); CHLORIDE 111 mmol/L (98-107); POTASSIUM 4.2 mmol/L (3.5-5.1); SGOT/AST 24 IU/L (3-35); SGPT/ALT 13 U/L (12-78); SODIUM 139 mmol/L (136-145)
[2019-06-04 16:55] LABS: TROPONIN I 0.063 ng/ml (<0.045)
--- NOTE | 2019-06-04 17:35 | NUR ---
PER THE BROTHER HE KNOWS OF NO HEALTH HISTORY - WHEN ASKED ABOUT WHEN HE WAS A CHILD THE BROTHER SAID JUST CHILDHOOD LIKE MEASELS OR MAYBE CHICKEN POX
--- NOTE | 2019-06-04 19:10 | NUR ---
24 HR chart check completed.
[2019-06-04 19:48] LABS: BILIRUBIN 1+ (NEGATIVE); BLOOD 1+ (NEGATIVE); CLARITY CLEAR (CLEAR); COLOR ORANGE (YELLOW); GLUCOSE NEGATIVE (NEGATIVE); KETONE NEGATIVE (NEGATIVE); LEUKO ESTERASE NEGATIVE (NEGATIVE); NITRITE NEGATIVE (NEGATIVE); PH 5.5 (5.0-9.0); SPECIFIC GRAVITY <= 1.005 (1.005-1.030)
--- NOTE | 2019-06-04 20:09 | NUR ---
DR. LIM NOTIFIED OF TROPONIN RESULTS.
[2019-06-05] VITALS (34 sets, daily range): BP systolic 93–135; BP diastolic 41–83
[2019-06-05 05:29] LABS: BASO % 0.3 % (0.0-1.0); EOS # 0.1 10*3/uL (0.0-0.4); EOS % 2.3 % (1.0-4.0); HEMATOCRIT 29.8 % (42.0-52.0); HEMOGLOBIN 9.5 g/dl (14.0-18.0); LYMPH # 0.8 10*3/uL (1.3-4.4); LYMPH % 23.1 % (27.0-41.0); MEAN CORPUSCULAR HGB 29.3 pg (27.0-31.0); MEAN CORPUSCULAR HGB CONC 31.9 g/dl (33.0-37.0); MEAN PLATELET VOLUME 10.9 fl (9.6-12.3); MONO # 0.2 10*3/uL (0.1-1.0); MONO % 6.8 % (3.0-9.0); NEUT # 2.3 10*3/uL (2.3-7.9); NEUT % 66.4 % (47.0-73.0); PLATELET COUNT AUTOMATED 98 10*3/uL (130-400); RED BLOOD COUNT 3.24 10*6/uL (4.50-5.90); RED CELL DISTRI WIDTH 18.6 % (0-14.5); WHITE BLOOD COUNT 3.5 10*3/uL (4.8-10.8)
[2019-06-05 06:01] LABS: ALBUMIN 2.1 gm/dl (3.1-4.5); ALKALINE PHOSPHATASE 65 U/L (45-117); BUN 12 mg/dl (7-24); CHLORIDE 108 mmol/L (98-107); CREATININE 0.94 mg/dL (0.70-1.30); POTASSIUM 3.4 mmol/L (3.5-5.1); SGOT/AST 15 IU/L (3-35); SGPT/ALT 13 U/L (12-78); SODIUM 138 mmol/L (136-145); TOTAL PROTEIN 5.2 gm/dL (6.4-8.2)
--- NOTE | 2019-06-05 09:17 | NUR ---
SET UP FOR BREAKFAST - PT RESP TACHY RATE 28 - PER PT NEED TO REST FIRST - VERY FATIGUED BUT CO-OPERATIVE WITH CARE.
--- NOTE | 2019-06-05 10:01 | NUR ---
[facility] CARDIOLOGY ANSWERING SERVICE NOTIFIED OF CONSULT @ 8120. PATIENT SLEEPING.
[2019-06-05 11:56] LABS: RETICULOCYTE % 5.34 % (0.50-2.50)
[2019-06-05 12:10] LABS: BILIRUBIN, DIRECT 1.2 mg/dL (0.0-0.2)
--- NOTE | 2019-06-05 14:26 | NUR ---
Hep Lock discontinued. Site asymptomatic. Pressure applied. Sterile dressing applied. WIND OPERATIONS SUPERVISOR REMOVED. Discharge instructions reviewed with patient/family. Patient receptive and verbalizes understanding. Follow-up care arranged. Written instructions given to patient/family. WENCESLAO WAGONER
--- NOTE | 2019-06-05 14:58 | NUR ---
DR PRATER ROUNDED TO SEE PATIENT - EUSEBIO DENZEL FROM ID HERE AND EXAMINED PATIENT. REQUESTED BLADDER SCAN - DONE WITH ONLY 10cc SEEN 2 HOURS AFTER LAST VOID
--- NOTE | 2019-06-05 16:04 | NUR ---
ECCHYMOSIS CONTINUES TO LEFT KNEE, RT ANKLE AND RT UPPER THIGH TO RT MID CALF POSTERIORLY (RT UPPER THIGH IS INNER, POSTERIOR TO OUTER FROM GROIN TO KNEE)
--- NOTE | 2019-06-05 18:36 | NUR ---
DR MAHONEY HERE AND SAW THE PATIENT - ORDERS RECEIVED
--- NOTE | 2019-06-05 21:53 | NUR ---
ATTEMPTED TO BATH PATIENT BUT PATIENT STATED THAT HE ALREADY HAD A BATH TO DAY. AND DOES NOT WANT ANOTHER ONE. HE SAID HE JUST WANTS TO REST.
[2019-06-06] VITALS (7 sets, daily range): BP systolic 91–117; BP diastolic 50–62
[2019-06-06 04:47] LABS: BASO % 0.3 % (0.0-1.0); EOS # 0.1 10*3/uL (0.0-0.4); EOS % 3.8 % (1.0-4.0); HEMATOCRIT 29.5 % (42.0-52.0); HEMOGLOBIN 9.3 g/dl (14.0-18.0); LYMPH # 0.7 10*3/uL (1.3-4.4); LYMPH % 25.9 % (27.0-41.0); MEAN CELL VOLUME 92.2 fl (80.0-94.0); MEAN CORPUSCULAR HGB 29.1 pg (27.0-31.0); MEAN CORPUSCULAR HGB CONC 31.5 g/dl (33.0-37.0); MEAN PLATELET VOLUME 10.7 fl (9.6-12.3); MONO # 0.2 10*3/uL (0.1-1.0); MONO % 6.6 % (3.0-9.0); NEUT # 1.8 10*3/uL (2.3-7.9); NEUT % 62.4 % (47.0-73.0); PLATELET COUNT AUTOMATED 102 10*3/uL (130-400); RED CELL DISTRI WIDTH 18.9 % (0-14.5); WHITE BLOOD COUNT 2.9 10*3/uL (4.8-10.8)
[2019-06-06 05:03] LABS: ALBUMIN 2.1 gm/dl (3.1-4.5); ALKALINE PHOSPHATASE 61 U/L (45-117); BUN 9 mg/dl (7-24); CHLORIDE 108 mmol/L (98-107); CREATININE 0.84 mg/dL (0.70-1.30); POTASSIUM 3.6 mmol/L (3.5-5.1); SGOT/AST 15 IU/L (3-35); SGPT/ALT 12 U/L (12-78); SODIUM 137 mmol/L (136-145); TOTAL PROTEIN 5.1 gm/dL (6.4-8.2)
--- NOTE | 2019-06-06 07:05 | NUR ---
DR BREEN CALLED IN TO CHECK ON PT. NO NEW ORDERS.
--- NOTE | 2019-06-06 07:11 | NUR ---
Shift chart check completed.24 HR chart check completed.
--- NOTE | 2019-06-06 07:37 | NUR ---
ON ASSESSMENT PATIENT AROUSES EASILY TO HIS NAME, COOPERATIVE, DENIES ANY PAIN OR SHORTNESS OF BREATH. PICC LINE INTACT RT UPPER ARM. BED IN LOW POSITION WITH WHEELS LOCKED. YELLOW SLIPPERS ON AND BED EXIT ALARM ON. SEE ALL APPROPRIATE INTERVENTIONS.
--- NOTE | 2019-06-06 08:21 | NUR ---
OUT OF BED TO CHAIR WITH MODERATE ASSIST, FEEDING HIMSELF BREAKFAST.
--- NOTE | 2019-06-06 08:35 | NUR ---
PHYSICAL THERAPY Patient seen this am 1:1 for therapy visit and was sitting up in bedside chair with several visitors in room upon therapist arrival. Patient identified by name / and voices no new c/o's at this time. Patient needed several v/c's to focus on task in completing all therapy this session, transfering sit to stand MIN A from low chair surface. Patient vital signs remained WFL's during entire treatment, ambulating with use of wh walker, MIN/CGA, 15'x 2 to bathroom. Patient demonstrates antalgic gait pattern secondary to c/o of B LE generalized pain during standing activity. Patient completed toilet transfer, MIN A demonstrating mild bout of confusion. Patient returned to bedside chair demonstrating modified B LE "hopping" gait pattern which he says doesn't hurt as much on his legs. Patient however was very unsteady and received v/c to return to normal gait pattern to improve safety awareness. Patient remained in bedside chair with call light, tray table and telephone. Will continue per POC as tolerated, total treatment time 14 minutes. Loc Gordon, BRIEFCASE SEWER
--- NOTE | 2019-06-06 09:48 | NUR ---
OT NOTE Pt was seen this A.M. 1:1 for 25 minute OT session. Upon arrival pt was sitting upright in the recliner with three caregivers at bedside. Pt identified by name and and had complaints of B knee pain which he was unable to rate on 0-10 pain scale. At rest pt's heart rate was 63 bpm. Sit to stand completed from chair level with Roxanna and use of w/w for UE support. Challenged pt's static standing tolerance needed for increased I in self care tasks and functional transfers. Pt was able to tolerate aprox 2 minutes at a time before sitting due to fatigue. Throughout pt required constant verbal and tactile prompts for holding his head up, pt would maintain for aprox 8 seconds at a time before requiring prompt again to correct. Functional mobility was then completed into the bathroom with Roxanna and use of w/w with verbal instructions for walker safety. There he transferred on/off standard commode with Roxanna due to low surface and safety with alignment of commode. Pt then stood sink side while washing his hands and face with Roxanna to correct retrograde postue that would occur when standing without UE support and occasional Roxanna for sequencing. Throughout standing sink side tasks pt's heart rate elevated to 81 bpm. Functional mobility then completed back to the recliner where he was left sitting upright with call light in hand, caregivers at bedside, ICCU nurse notified, and resting heart rate of 69 bpm. Continue with rec D/C plan to SNF. MARY ANN Conrad
--- NOTE | 2019-06-06 09:51 | NUR ---
PHYSICAL THERAPY HERE, AMBULATED PT IN THE ROOM. CAREGIVERS IN TO SEE PT. DR MORENO HAS VISITED. DR INIGUEZ HERE NOW TO SEE PT.
--- NOTE | 2019-06-06 10:30 | NUR ---
Full Stack Net Developer in to see patient. Discussed discharge planning with patient's brother. Discharge plans are for patient to return home with home health care services from [facility]. When medically stable he will be discharged to home with [facility]. general utility worker following.
--- NOTE | 2019-06-06 10:50 | NUR ---
ECHO BEING DONE AT THE BEDSIDE. RAVI CA IN.
--- NOTE | 2019-06-06 13:04 | NUR ---
OT NOTE Attempted to see pt this P.M. for second OT session and upon arrival pt was working with speech therapy. Will check back at a later time/date and continue with POC as indicated. ANDREA Conrad/Flip
--- NOTE | 2019-06-06 13:11 | NUR ---
SPEECH THERAPY IN TO EVALUATE PT. PT KEPT SAYING HE WASN'T HUNGRY BUT HE DID EAT ABOUT 2/3 OF HIS LUNCH. MBS CANCELLED PER HER RECOMMENDATIONS.
--- NOTE | 2019-06-06 13:23 | NUR ---
SPEECH PATHOLOGY Clinical swallowing evaluation completed due to dysphagia. Patient was admitted from home with anemia, altered mental status, dehydration and malnutrition. Intake at home was reported as poor. Patient underwent an upper GI 06/03/19 which revealed esophagitis, gastritis and hiatal hernia. He is receiving a soft diet and thin liquid. Assessment was completed at lunchtime meal. Patient was pleasant and cooperative and able to follow commands. Oral peripheral exam revealed edentulous status. Lingual/labial skills were WNL in terms of strength, ROM and coordination. He was observed with a variety of solid and thin liquid consistencies. Patient fed himself, using universal safety strategies such as small bites/sips, alternating consistencies and slow intake. He displayed no overt difficulty with any consistency. He was able to chew solids without difficulty. No cough, choke or wet vocal quality was displayed and there was no residue post swallow. Recommend he remain on present diet. Follow up therapy is not warranted as he tolerates diet and demonstrates use of safety precautions. He does not require a MBS at this time due to these results. The patient and his nurse were educated on results and jeromy. and they verbalized understanding. Refer to report in [facility] for further information. Thank you for this referral. HEIDI WNITER MSCCC-SALES REPRESENTATIVE [employer]
--- NOTE | 2019-06-06 13:28 | NUR ---
PICC LINE DRESSING CHANGED PER POLICY. PT ANXIOUS BUT COOPERATIVE.
--- NOTE | 2019-06-06 17:09 | NUR ---
OUT OF BED TO CHAIR WITH MINIMAL ASSIST. C/O "TIGHTNESS" IN HIS KNEES. TYLENOL 65O BY MOUTH GIVEN. EATING MEATLOAF/MASHED POTATOES/GRAVY. "THIS TASTES PRETTY GOOD".
--- NOTE | 2019-06-06 18:01 | NUR ---
PT ATE WELL FOR DINNER. ASSISTED BACK TO BED. VANCO TROUGH WAS 11.5, PHARMACY IS RECALCULATING DOSE.
--- NOTE | 2019-06-06 18:02 | NUR ---
EARLIER TYLENOL SOMEWHAT EFFECTIVE. PT STIFF WHEN STANDING TO GET BACK TO BED.
--- NOTE | 2019-06-06 20:20 | NUR ---
1930 RESTING IN BED WATCHING TV. PLEASANT AND COOPERATIVE. PICC LINE INTACT MIKAL. MULTIPLE ECCHYMOTIC AREAS CONT BILATERAL LOWER EXTREMITIES. PULSE OX 99% ON RA. NO DISTRESS NOTED. NO C/O'S PAIN VOICED AT PRESENT. COLOR REMAINS PALE.
--- NOTE | 2019-06-06 22:09 | NUR ---
RESTING IN BED WITH EYES CLOSED. APPEARS TO BE SLEEPING.
--- NOTE | 2019-06-06 23:39 | NUR ---
MULTIPLE TISSUES NOTED ON BEDSIDE TABLE WITH BM ON THEM. PT STATES "I CLEANED MYSELF. I JUST WENT A LITTLE BIT." STOOL NOTED ON HANDS. BOTH HANDS WASHED. REFUSES BATH. STATES " I'M JUST COMFORTABLE." TURNED TO SIDE PER REQUEST. NO STOOL NOTED ON PJ PANTS. WILL CONT TO MONITOR.
[2019-06-07] VITALS: BP 105/56
[2019-06-07 04:00] VITALS: BP 110/50
[2019-06-07 04:33] LABS: BASO % 0.4 % (0.0-1.0); EOS # 0.1 10*3/uL (0.0-0.4); HEMATOCRIT 28.8 % (42.0-52.0); HEMOGLOBIN 8.9 g/dl (14.0-18.0); LYMPH # 0.7 10*3/uL (1.3-4.4); LYMPH % 27.2 % (27.0-41.0); MEAN CELL VOLUME 94.7 fl (80.0-94.0); MEAN CORPUSCULAR HGB 29.3 pg (27.0-31.0); MEAN CORPUSCULAR HGB CONC 30.9 g/dl (33.0-37.0); MONO # 0.2 10*3/uL (0.1-1.0); MONO % 6.1 % (3.0-9.0); NEUT # 1.6 10*3/uL (2.3-7.9); NEUT % 60.2 % (47.0-73.0); PLATELET COUNT AUTOMATED 99 10*3/uL (130-400); RED BLOOD COUNT 3.04 10*6/uL (4.50-5.90); RED CELL DISTRI WIDTH 19.9 % (0-14.5); WHITE BLOOD COUNT 2.6 10*3/uL (4.8-10.8)
[2019-06-07 04:47] LABS: BUN 12 mg/dl (7-24); CHLORIDE 108 mmol/L (98-107); POTASSIUM 3.7 mmol/L (3.5-5.1); SODIUM 137 mmol/L (136-145)
--- NOTE | 2019-06-07 06:09 | NUR ---
0200 UP TO BR FOR MODERATE BM OF FORMED BROWN STOOL. TOLERATED WELL. 0600 REMAINS SLEEPING WITHOUT DISTRESS. PICC LINE INTACT MIKAL WITH STOCKINETTE IN PLACE. CONDITION GUARDED.
[2019-06-07 08:00] VITALS: BP 119/59
--- NOTE | 2019-06-07 09:34 | NUR ---
LINK AND LINK KNITTING MACHINE OPERATOR FRANCK FUENTES MADE AWARE PT IS DOWNGRADED TO NONMONITORED PT.
--- NOTE | 2019-06-07 09:40 | NUR ---
OT NOTE Pt was seen this A.M. 1:1 for 20 minute OT session. Upon arrival pt was supine in bed. Pt identified by name and and had no complaints at this time. Pt presented to therapy with a resting heart rate of 68 bpm. Pt transferred supine to sit EOB with SBA. Sit to stand completed from bed level with Roxanna SWANA followed by functional mobility into the bathroom with Roxanna NURSE LDR. Throughout pt presented with impulsive behavior, educated pt on slowing down and pt had poor carry over increasing risk of falls. There he transferred on/off standard commode with Roxanna due to low surface. Clothing management completed CGA for safety and toilet hygiene completed with CGA. Functional mobility was then completed back to the EOB where he transferred sit to supine with SBA. There he was left with call light in hand, tray table in place, resting heart rate of 73 bpm, and bed alarm activated for safety. Continue with rec D/C plan to SNF. MARY ANN Conrad
--- NOTE | 2019-06-07 10:34 | NUR ---
PHYSICAL THERAPY Patient presented to therapy in supine with head of bed elevated and bed alarm off. Patient was identified by name and on wristband. Patient gives informed consent for treatment. Patient is mumbling. Patient transferred supine to sitting at EOB with SBA. Patient performed sitting at EOB without assistance. Patient sit to stand from EOB with MIN A X 1. Patient declined use of walker saying he," doesn't need it" Patient ambulated into bathroom with DEICER FINISHER X 2 with no assistive device FOR 12' X 1. On and off commode with MIN A X 1. Patient performed ambulation back to EOB with DEICER FINISHER X 2. Patient transferred back into bed with SBA because he said he needed to rest after walking to the restroom. Patient requested to rest before doing anymore therapy. Patient was left in supine in bed with head of bed elevated, call light within reach and bed alarm activated. Patient was 1:1 with this COLLAR CLOSER LOCKSTITCH for 17 minutes total. GRIS ZHOU COLLAR CLOSER LOCKSTITCH
[2019-06-07 12:00] VITALS: BP 103/57
--- NOTE | 2019-06-07 13:15 | NUR ---
OT NOTE Attempted to see pt this P.M. for second OT session and upon arrival pt was unable to participate due to recieving a medical test. Will check back at a later time/date and continue with POC as able. ANDREA Conrad/Flip
--- NOTE | 2019-06-07 13:45 | NUR ---
PHYSICAL THERAPY Patient is down for a medical test at this time. Will check back and a later date /time. GRIS ZHOU INSPECTION SUPERVISOR
--- NOTE | 2019-06-07 14:17 | NUR ---
EXPANDING MACHINE OPERATOR spoke to the patients brother about the patient needing 24hr supervision at home. Patients brother stated he is going to contact the patients insurance to see what they would cover. EXPANDING MACHINE OPERATOR also explained that this EXPANDING MACHINE OPERATOR provided the patients family friend Abigail was given information on the Passport Services the patient may qualify for. Patients brother said he would like into it but wants the brother to go home with home healthcare. The patients brother is hopeful the patient will be able to return to his independent status as he was prior to this admission. EXPANDING MACHINE OPERATOR to follow. -SEE Shea
--- NOTE | 2019-06-07 14:24 | NUR ---
PT TRANSFERED TO ROOM 523 VIA BED AT THIS TIME.
--- NOTE | 2019-06-07 15:25 | NUR ---
Spoke to [facility] and faxed referral for home health care services
--- NOTE | 2019-06-07 15:35 | NUR ---
PATIENT RESTING QUIETLY IN BED. NO DISTRESS NOTED. RESPIRATIONS EASY, REGULAR ON RA. IV LEVAQUIN INFUSING PER ORDER. PICC LINE TO RIGHT UPPER ARM INTACT. FLUSHED WITHOUT DIFFICULTY. PT ALERT AND ORIENTED. WILL CONTINUE TO MONITOR. BED ALARM MAINTAINED FOR SAFETY. CALL LIGHT WITHIN REACH.
[2019-06-07 16:00] VITALS: BP 101/57
[2019-06-07 20:00] VITALS: BP 103/58
--- NOTE | 2019-06-07 20:21 | NUR ---
24 HR chart check completed.
[2019-06-08] VITALS: BP 105/58
[2019-06-08 06:39] LABS: BASO % 0.7 % (0.0-1.0); EOS # 0.1 10*3/uL (0.0-0.4); EOS % 3.3 % (1.0-4.0); HEMATOCRIT 30.9 % (42.0-52.0); HEMOGLOBIN 9.8 g/dl (14.0-18.0); LYMPH # 0.9 10*3/uL (1.3-4.4); LYMPH % 30.3 % (27.0-41.0); MEAN CELL VOLUME 94.5 fl (80.0-94.0); MEAN CORPUSCULAR HGB CONC 31.7 g/dl (33.0-37.0); MEAN PLATELET VOLUME 11.1 fl (9.6-12.3); MONO # 0.2 10*3/uL (0.1-1.0); MONO % 7.2 % (3.0-9.0); NEUT # 1.8 10*3/uL (2.3-7.9); NEUT % 57.5 % (47.0-73.0); PLATELET COUNT AUTOMATED 116 10*3/uL (130-400); RED BLOOD COUNT 3.27 10*6/uL (4.50-5.90); RED CELL DISTRI WIDTH 20.1 % (0-14.5)
[2019-06-08 08:00] VITALS: BP 120/52
--- NOTE | 2019-06-08 08:15 | NUR ---
PT RESTING COMFORTABLY IN BED. NO DISTRESS NOTED. BREATHING TREATMENT IN USE. PT DENIES ANY PAIN/DISCOMFORT AT THIS TIME. WILL CONTINUE TO MONITOR. VSS. CALL LIGHT WITHIN REACH. BED ALARM MAINTAINED FOR SAFETY.
--- NOTE | 2019-06-08 09:35 | NUR ---
PROP AND SCENERY MAKER reached out to the patients brother Marc in regards to the patient needed 24hr supervision at home. Patients brother stated the patient would not be able to stay with him. PROP AND SCENERY MAKER explained the insurance would only cover a porportion of the patient needed 24hr care. PROP AND SCENERY MAKER explained the benefits of a SNF. Patients brother stated he attempted to reach out to the insurance to see what all would be covered, but was unable to speak with anyone without patients concent. PROP AND SCENERY MAKER reached out to the patient insurance to see what would be covered and how much out of pocket expense may be for the patient. PROP AND SCENERY MAKER reached out to [facility]. They are not in network with the patients insurance. Patient would need to be on [employer]port Services in order to receive services through [facility]. PROP AND SCENERY MAKER reached out to [facility] to make a referral to [employer]port Services for the patient. Patients brother will be coming in to talk to the PROP AND SCENERY MAKER at 11am. PROP AND SCENERY MAKER has made a referral to [facility] in order for the patient to receive passport services. -SEE Shea
--- NOTE | 2019-06-08 10:00 | NUR ---
PHYSICAL THERAPY Patient seen this am 1;1 for therapy visit and was supine in bed upon therapist arrival. Patient identified by name / and presented with increased alertness. Patient voices no c/o's pain and transfers supine to sit EOB with MIN A. 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 Patient also unsteady during 180 degree turns and demonstrates decreased standing safety awareness, requiring Supervision. Patient returned to bedside chair and remamined with call light, tray table, telephone and body alarm for safety. Will continue per POC as tolerated, total treatment time 16 minutes. Loc Gordon, TITLE COORDINATOR
--- NOTE | 2019-06-08 10:14 | NUR ---
PT UP AMBULATING IN HALLWAY WITH PHYSICAL THERAPY.
--- NOTE | 2019-06-08 10:20 | NUR ---
OT NOTE Pt was seen this A.M. 1:1 for 17 minute OT session. Upon arrival pt was supine in bed. Pt identified by name and and had no complaints at this time. Pt transferred supine to sit EOB with SBA. While sitting EOB pt donned B slippers with Roxanna for inital start of task. Sit to stand completed from bed level with Roxanna SPRAY STAINER followed by functional mobility into the bathroom with Roxanna SPRAY STAINER and constant verbal prompts for slowing down due to being impulsive and increasing risk of falls. There pt transferred on/off standard commode with Roxanna due to being impulsive, low surface, and poor safety awareness. Clothing management completed with CGA and toilet hygiene completed with SBA while seated. Pt then stood sink side while washing his hands with Roxanna for assist with managing water, soap, and assist with sequencing. Functional mobility completed back to the recliner with Roxanna SPRAY STAINER. There he was left sitting upright with call light in hand, tray table in place, and body alarm activated for safety. COntinue with rec D/C plan to SNF. ANDREA Conrad/Flip
--- NOTE | 2019-06-08 11:18 | NUR ---
IN TO SEE PATIENT REGARDING PLAN OF CARE.
--- NOTE | 2019-06-08 11:50 | NUR ---
REPAIR TABLE OPERATOR spoke to the patients brother about [facility] being out of network at the moment. REPAIR TABLE OPERATOR explained the patient needed 24hr supervision at home. Patients brother stated the is no way they would be able to pay out of pocket for it at this time. REPAIR TABLE OPERATOR explain patient could be referred to a SNF. REPAIR TABLE OPERATOR explained this to the patient. Patient and brother were agreeable to have him referred to [facility]. Patients brother in law is currently bilingual teacher assistant at [facility]. REPAIR TABLE OPERATOR spoke with Rossy at [facility] and PRECERT has been started. -SEE Shea
--- NOTE | 2019-06-08 11:53 | NUR ---
PRECERT is required for patient to go to [facility]. PRECERT has been started. -SEE Shea
[2019-06-08 12:00] VITALS: BP 110/52
--- NOTE | 2019-06-08 13:45 | NUR ---
OT NOTE Pt was seen this P.M. 1:1 for second OT session consisting of 15 minutes. Upon arrival pt was supine in bed. Pt identified by name and and had no complaints at this time. Pt transferred supine to sit EOB with SBA. Sit to stand completed from bed level with Roxanna SWANA. Challenged pt's dynamic standing balance needed for increased I and enhanced safety in ADL/IADL tasks. While weight shifting, crossing midline, and reaching over all planes of motion pt was able to maintain F- standing balance throughout requiring Roxanna for UE support. Functional mobility then completed around the room with Roxanna ARCH SUPPORT TECHNICIAN. Pt then transferred back into bed sit to supine with SBA. There he was left with call light in hand, tray table in place, and bed alarm activated for safety. Continue with rec D/C plan to SNF. ANDREA Conrad/Flip
[2019-06-08 16:00] VITALS: BP 136/53
[2019-06-08 20:00] VITALS: BP 93/51
[2019-06-08 21:00] VITALS: BP 110/52
--- NOTE | 2019-06-08 23:00 | NUR ---
ASSUMED CARE FOR THIS PT AT THIS TIME. PT RESTING QUIETLY IN BED. NO S/S OF DISTRESS NOTED. BED ALARM ON W/CALL LIGHT IN REACH.
[2019-06-09] VITALS: BP 113/60
[2019-06-09 08:00] VITALS: BP 113/57
--- NOTE | 2019-06-09 10:03 | NUR ---
PRECERT has been obtained patient can go to [facility] when medically stable. -SEE Shea
--- NOTE | 2019-06-09 10:08 | NUR ---
UPON ENTERING ROOM, PT HAS HEAD COVERED WITH BLANKET. PT MUMBLING AND HARD TO UNDERSTAND. REFUSES TO TAKE PILLS AT THIS TIME, AGREES TO IV MEDICATIONS. SLOW TO RESPOND TO QUESTIONS. BED IN LOWEST LCOKED POSITION, CALL LIGHT WITHIN REACH. ENCOURAGED TO EAT BREAKFAST. WILL CONTINUE TO MONITOR.
--- NOTE | 2019-06-09 10:40 | NUR ---
PHYSICAL THERAPY Patient seen this am 1:1 for therapy visit and was standing in bathroom with OT surgeon's assistant upon therapist arrival. Patient identified by name / and was very pleasant this morning. 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 Patient still has some balance issues especially during 180 turns and very cautious taking backward steps. Patient returned to supine in bed and remained with call light, tray table, telephone and bed alarm for safety. Will continue per POC as tolerated, total treatment time 14 minutes. Loc Gordon, PURIFICATION SUPERVISOR
[2019-06-09] MEDS ORDERED: PANTOPRAZOLE SO40 MG PO (10:41)
[2019-06-09] MEDS ORDERED: VITAMIN D5000 UNI1 PO (10:41)
--- NOTE | 2019-06-09 10:53 | NUR ---
OT NOTE Pt was seen this A.M. 1:1 for 13 minute OT session. Upon arrival pt was supine in bed. Pt identified by name and and had no complaints at this time. Pt transferred supine to sit EOB with SBA. Sit to stand completed from the EOB with CGA for safety due to pt having bouts of unsteady gait and impulsive behavior. Functional mobility was then completed into the bathroom with Roxanna BACTERIOLOGIST MEDICAL. There he stood sink side while washing his hands and face with Roxanna for assist with sequencing. Functional mobility was then completed to the EOB with min BACTERIOLOGIST MEDICAL. There he transferred sit to supine with SBA. Pt was left supine in bed with call light in hand, tray table in place, and bed alarm activated for safety. Continue with rec D/C plan to SNF. ANDREA Conrad/Flip
--- NOTE | 2019-06-09 11:25 | NUR ---
NURSE CHARGE RN received notice of the patients discharge. NURSE CHARGE RN spoke with RN-Lyla. NURSE CHARGE RN reached out to [facility] to see if they would be able to transport the patient to their facility. [facility] is able to transport the patient today at 1pm. NURSE CHARGE RN left messages for both the patients brother and sister in law. NURSE CHARGE RN then saw the patients brother Marc in the hallway. He is aware the patient is discharged and will be transported to [facility] today. -SEE Shea
[2019-06-09 12:00] VITALS: BP 111/54
--- NOTE | 2019-06-09 12:02 | NUR ---
MARKET DEVELOPMENT ANALYST faxed patients discharge orders to [facility]. -SEE Shea
--- NOTE | 2019-06-09 13:17 | NUR ---
Discharge instructions reviewed with patient/family. Patient receptive and verbalizes understanding. Follow-up care arranged. Written instructions given to patient/family. ZAYNAB MEDINA
--- NOTE | 2019-06-10 08:17 | NUR ---
PHYSICAL THERAPY CO-SIGN I approve of the Physical Therapy notes written above. Jackie Woody, PT, DPT
--- NOTE | 2019-06-10 16:22 | NUR ---
OCCUPATIONAL THERAPY CO-SIGN I approve of the Occupational Therapy notes written above. SHIRAZ MOTA OTR/Flip
== END 2019-06-09 13:17 | disposition other institution (70) | DRG 660 ==
LOC: ED 11:39 → ICCU 13:31 → EDHOLD 13:31 → ICCU 13:45 → 5E 06-07 14:09
PROVIDERS: Emergency Medicine; Family Medicine; Hospitalist; Internal Medicine; Orthopaedic Surgery; Student in an Organized Health Care Education/Training Program; ADMIT Internal Medicine
PROC: 30233N1 Transfusion of Nonautologous Red Blood Cells into Peripheral Vein, Percutaneous Approach (ICD-10-PCS; principal; 2019-06-01)
PROC: 0DB78ZX Excision of Stomach, Pylorus, Via Natural or Artificial Opening Endoscopic, Diagnostic (ICD-10-PCS; 2019-06-03)
PROC: 0DJD8ZZ Inspection of Lower Intestinal Tract, Via Natural or Artificial Opening Endoscopic (ICD-10-PCS; 2019-06-03)
DX: D61.818 Other pancytopenia (principal); K57.91 Diverticulosis of intestine, part unspecified, without perforation or abscess with bleeding; N17.0 Acute kidney failure with tubular necrosis; G93.41 Metabolic encephalopathy; I95.9 Hypotension, unspecified; K29.71 Gastritis, unspecified, with bleeding; E43 Unspecified severe protein-calorie malnutrition; R57.1 Hypovolemic shock; F17.210 Nicotine dependence, cigarettes, uncomplicated; J32.0 Chronic maxillary sinusitis; J32.2 Chronic ethmoidal sinusitis; J32.3 Chronic sphenoidal sinusitis; N40.0 Benign prostatic hyperplasia without lower urinary tract symptoms; N28.1 Cyst of kidney, acquired; R00.1 Bradycardia, unspecified; R41.0 Disorientation, unspecified; A41.9 Sepsis, unspecified organism; K63.89 Other specified diseases of intestine; E87.6 Hypokalemia; I08.1 Rheumatic disorders of both mitral and tricuspid valves; K21.0 Gastro-esophageal reflux disease with esophagitis; R73.9 Hyperglycemia, unspecified; K44.9 Diaphragmatic hernia without obstruction or gangrene; S80.02XA Contusion of left knee, initial encounter; S90.01XA Contusion of right ankle, initial encounter; X58.XXXA Exposure to other specified factors, initial encounter; Y93.89 Activity, other specified; Y99.8 Other external cause status; Y92.89 Other specified places as the place of occurrence of the external cause; Z71.6 Tobacco abuse counseling; Z68.1 Body mass index [BMI] 19.9 or less, adult

== ENCOUNTER 2019-11-22 11:54 | Inpatient (IN) | payer MEDICARE ==
[~2019-11-22] VITALS: Ht 177.8 cm; Wt 74.8 kg
[~2019-11-22 11:54] MED LIST: PANTOPRAZOLE SO40 MG PO; VITAMIN D5000 UNI1 PO
[2019-11-22 11:58] VITALS: BP 117/83
[2019-11-22 12:22] LABS: BASO % 0.3 % (0.0-1.0); EOS # 0.1 10*3/uL (0.0-0.4); EOS % 0.7 % (1.0-4.0); LYMPH # 1.3 10*3/uL (1.3-4.4); LYMPH % 11.2 % (27.0-41.0); MEAN CELL VOLUME 96.1 fl (80.0-94.0); MEAN CORPUSCULAR HGB 32.3 pg (27.0-31.0); MEAN CORPUSCULAR HGB CONC 33.6 g/dl (33.0-37.0); MEAN PLATELET VOLUME 10.6 fl (9.6-12.3); MONO # 0.7 10*3/uL (0.1-1.0); MONO % 5.6 % (3.0-9.0); NEUT # 9.5 10*3/uL (2.3-7.9); NEUT % 81.7 % (47.0-73.0); PLATELET COUNT AUTOMATED 133 10*3/uL (130-400); RED BLOOD COUNT 4.89 10*6/uL (4.50-5.90); RED CELL DISTRI WIDTH 12.9 % (0-14.5); WHITE BLOOD COUNT 11.6 10*3/uL (4.8-10.8)
[2019-11-22 12:37] LABS: ALBUMIN 3.6 gm/dl (3.1-4.5); ALKALINE PHOSPHATASE 74 U/L (45-117); BUN 30 mg/dl (7-24); CHLORIDE 106 mmol/L (98-107); CREATININE 1.18 mg/dL (0.70-1.30); POTASSIUM 3.8 mmol/L (3.5-5.1); SGOT/AST 24 IU/L (3-35); SGPT/ALT 23 U/L (12-78); SODIUM 139 mmol/L (136-145); TOTAL PROTEIN 7.5 gm/dL (6.4-8.2)
[2019-11-22 12:38] LABS: ETHYL ALCOHOL < 3.0 mg/dl (<3); TROPONIN I < 0.015 ng/ml (<0.045)
[2019-11-22 12:53] LABS: URINE AMPHETAMINES < 1000 (1000ng/ml); URINE BARBITURATES < 200 (200ng/ml); URINE BENZODIAZEPINES < 200 (200ng/ml); URINE CANNABINOIDS (THC) < 50 (50ng/ml); URINE COCAINE < 300 (300ng/ml); URINE METHADONE < 300 (300ng/ml); URINE OPIATES < 300 (300ng/ml)
[2019-11-22 12:54] LABS: URINE PHENCYCLIDINE < 25 (25ng/ml)
[2019-11-22 12:55] LABS: BILIRUBIN NEGATIVE (NEGATIVE); BLOOD 3+ (NEGATIVE); CLARITY SL CLOUDY (CLEAR); COLOR YELLOW (YELLOW); GLUCOSE NEGATIVE (NEGATIVE); KETONE NEGATIVE (NEGATIVE); LEUKO ESTERASE NEGATIVE (NEGATIVE); NITRITE NEGATIVE (NEGATIVE); UROBILINOGEN 0.2 E.U./dl (0.2-1.0)
[2019-11-22 13:01] LABS: BACTERIA 2+; MUCOUS 2+
[2019-11-22 14:00] VITALS: BP 107/68
[2019-11-22 15:30] VITALS: BP 107/68
[2019-11-22 16:20] VITALS: BP 113/80
[2019-11-22 19:03] VITALS: BP 106/74
[2019-11-22 20:00] VITALS: BP 106/74
[2019-11-23 06:24] LABS: BASO % 0.2 % (0.0-1.0); EOS # 0.1 10*3/uL (0.0-0.4); EOS % 0.9 % (1.0-4.0); HEMATOCRIT 43.6 % (42.0-52.0); LYMPH # 1.6 10*3/uL (1.3-4.4); LYMPH % 18.8 % (27.0-41.0); MEAN CELL VOLUME 96.7 fl (80.0-94.0); MEAN CORPUSCULAR HGB 32.6 pg (27.0-31.0); MEAN CORPUSCULAR HGB CONC 33.7 g/dl (33.0-37.0); MEAN PLATELET VOLUME 10.9 fl (9.6-12.3); MONO # 0.8 10*3/uL (0.1-1.0); MONO % 9.1 % (3.0-9.0); NEUT # 6.1 10*3/uL (2.3-7.9); NEUT % 70.7 % (47.0-73.0); PLATELET COUNT AUTOMATED 120 10*3/uL (130-400); RED BLOOD COUNT 4.51 10*6/uL (4.50-5.90); RED CELL DISTRI WIDTH 12.8 % (0-14.5); WHITE BLOOD COUNT 8.6 10*3/uL (4.8-10.8)
[2019-11-23 06:39] LABS: ALKALINE PHOSPHATASE 56 U/L (45-117); BUN 21 mg/dl (7-24); CHLORIDE 108 mmol/L (98-107); CHOLESTEROL 178 mg/dL (<200); CREATININE 1.02 mg/dL (0.70-1.30); HDL CHOLESTEROL 44 mg/dl (40-60); LDL CHOLESTEROL 112 mg/dL (9-159); POTASSIUM 3.9 mmol/L (3.5-5.1); SGOT/AST 23 IU/L (3-35); SGPT/ALT 18 U/L (12-78); SODIUM 141 mmol/L (136-145); TOTAL PROTEIN 6.6 gm/dL (6.4-8.2); TRIGLYCERIDES 110 mg/dl (<150); VLDL CHOLESTEROL 22 mg/dL (6-40)
[2019-11-23 08:00] VITALS: BP 101/59
[2019-11-23 19:04] VITALS: BP 111/62
[2019-11-24 07:53] VITALS: BP 106/66
[2019-11-24 19:01] VITALS: BP 115/78
[2019-11-25 08:00] VITALS: BP 116/82
[2019-11-25 19:12] VITALS: BP 125/76
[2019-11-26 08:00] VITALS: BP 107/69
[2019-11-26 20:00] VITALS: BP 102/48
[2019-11-27 07:19] VITALS: BP 106/71
[2019-11-27 20:04] VITALS: BP 134/87
[2019-11-28 07:35] VITALS: BP 142/84
[2019-11-28 20:00] VITALS: BP 130/78
[2019-11-29 07:50] VITALS: BP 115/68
[2019-11-29 20:00] VITALS: BP 114/78
[2019-11-30 08:00] VITALS: BP 110/82
[2019-11-30 19:01] VITALS: BP 111/58
[2019-12-01 07:43] VITALS: BP 123/70
[2019-12-01 20:00] VITALS: BP 111/64
[2019-12-02 07:54] VITALS: BP 114/66
[2019-12-02] MEDS ORDERED: FLUVOXAMINE50 MG PO (09:31)
[2019-12-02] MEDS ORDERED: BENZTROPINE ME0.5 MG PO (09:31)
[2019-12-02] MEDS ORDERED: OLANZAPINE ODT5 MG PO (09:31)
== END 2019-12-02 13:04 | disposition home or self-care (01) | DRG 885 ==
LOC: ED 11:54 → 3N 15:39
PROVIDERS: Nurse Practitioner Family; ADMIT Psychiatry & Neurology Psychiatry
DX: F33.3 Major depressive disorder, recurrent, severe with psychotic symptoms (principal); E43 Unspecified severe protein-calorie malnutrition; F42.9 Obsessive-compulsive disorder, unspecified; F84.0 Autistic disorder; F17.210 Nicotine dependence, cigarettes, uncomplicated; E53.8 Deficiency of other specified B group vitamins; E55.9 Vitamin D deficiency, unspecified; K44.9 Diaphragmatic hernia without obstruction or gangrene; K29.50 Unspecified chronic gastritis without bleeding; M71.22 Synovial cyst of popliteal space [Baker], left knee; Z79.899 Other long term (current) drug therapy; Z71.6 Tobacco abuse counseling; Z68.23 Body mass index [BMI] 23.0-23.9, adult

== ENCOUNTER 2020-06-06 11:46 | Inpatient (IN) | payer MEDICARE ==
[~2020-06-06] VITALS: Ht 177.8 cm; Wt 77.0 kg
[2020-06-06] VITALS (18 sets, daily range): BP systolic 73–112; BP diastolic 40–90
[~2020-06-06 11:46] MED LIST changes: +BENZTROPINE ME0.5 MG PO; +FLUVOXAMINE50 MG PO; +OLANZAPINE ODT5 MG PO
[2020-06-06 12:40] LABS: BASO % 0.2 % (0.0-1.0); EOS % 0.1 % (1.0-4.0); LYMPH # 1.3 10*3/uL (1.3-4.4); LYMPH % 10.7 % (27.0-41.0); MEAN CELL VOLUME 89.3 fl (80.0-94.0); MEAN CORPUSCULAR HGB 30.1 pg (27.0-31.0); MEAN CORPUSCULAR HGB CONC 33.7 g/dl (33.0-37.0); MEAN PLATELET VOLUME 10.1 fl (9.6-12.3); MONO # 0.5 10*3/uL (0.1-1.0); MONO % 4.4 % (3.0-9.0); NEUT # 9.9 10*3/uL (2.3-7.9); NEUT % 84.3 % (47.0-73.0); PLATELET COUNT AUTOMATED 150 10*3/uL (130-400); RED BLOOD COUNT 4.59 10*6/uL (4.50-5.90); RED CELL DISTRI WIDTH 13.5 % (0-14.5); WHITE BLOOD COUNT 11.7 10*3/uL (4.8-10.8)
[2020-06-06 12:56] LABS: ALKALINE PHOSPHATASE 93 U/L (45-117); BUN 24 mg/dl (7-24); CHLORIDE 106 mmol/L (98-107); CREATININE 1.45 mg/dL (0.70-1.30); POTASSIUM 4.1 mmol/L (3.5-5.1); SGOT/AST 12 IU/L (3-35); SGPT/ALT 15 U/L (12-78); SODIUM 139 mmol/L (136-145); TOTAL PROTEIN 7.3 gm/dL (6.4-8.2)
[2020-06-06 12:57] LABS: TROPONIN I < 0.015 ng/ml (<0.045)
[2020-06-06 17:18] LABS: ABG BASE EXCESS 1.3 mmol/L (-2.0-2.0); ARTERIAL BLOOD GAS PH 7.47 (7.35-7.45)
[2020-06-06 18:43] LABS: BILIRUBIN Negative (Negative); BLOOD Trace-Lysed (Negative); CLARITY Clear (Clear); GLUCOSE Negative (Negative); KETONE Negative (Negative); LEUKO ESTERASE Trace (Negative); NITRITE Negative (Negative); PH 5.5 (4.5-8.0)
[2020-06-06 19:18] LABS: COLOR Yellow (Yellow)
[2020-06-06 19:20] LABS: BACTERIA 1+; EPITHELIAL CELLS 0-2; MUCOUS 3+
[2020-06-06 20:26] LABS: ABG BASE EXCESS 2.4 mmol/L (-2.0-2.0); ARTERIAL BLOOD GAS PH 7.448 (7.35-7.45)
[2020-06-06] MEDS ORDERED: FLUVOXAMINE MA150 M1 PO (20:49)
[2020-06-06] MEDS ORDERED: RISPERIDONE1 MG PO (20:50)
[2020-06-06] MEDS ORDERED: FEROSUL325 MG PO (20:51)
[2020-06-06] MEDS ORDERED: NATURE'S BLEND F1 MG PO (20:51)
[2020-06-06 23:24] LABS: ALBUMIN 2.3 gm/dl (3.1-4.5); ALKALINE PHOSPHATASE 74 U/L (45-117); BUN 21 mg/dl (7-24); CHLORIDE 112 mmol/L (98-107); CREATININE 1.18 mg/dL (0.70-1.30); POTASSIUM 3.7 mmol/L (3.5-5.1); SGOT/AST 9 IU/L (3-35); SGPT/ALT 12 U/L (12-78); SODIUM 140 mmol/L (136-145); TOTAL PROTEIN 5.8 gm/dL (6.4-8.2)
[2020-06-06 23:26] LABS: TROPONIN I < 0.015 ng/ml (<0.045)
[2020-06-07] VITALS (56 sets, daily range): BP systolic 69–141; BP diastolic 32–93
[2020-06-07 05:19] LABS: ACT PARTIAL THROMBO TIME 31.9 SECONDS (20.0-32.1); INTERNATIONAL NORM RATIO 1.1 (2.0-3.5)
[2020-06-07 05:22] LABS: FREE T4 1.2 ng/dl (0.76-1.46)
[2020-06-07 05:28] LABS: THYROID STIM HORMONE (HS) 0.861 uIU/ml (0.358-4.75)
[2020-06-07 07:47] LABS: FERRITIN 444.7 ng/mL (22.0-322.0); VITAMIN D, 25-HYDROXY 29.1 ng/mL (30-100)
[2020-06-07 08:01] LABS: HEMATOCRIT 39.8 % (42.0-52.0); MEAN CORPUSCULAR HGB 29.5 pg (27.0-31.0); MEAN CORPUSCULAR HGB CONC 33.2 g/dl (33.0-37.0); MEAN PLATELET VOLUME 10.9 fl (9.6-12.3); PLATELET COUNT AUTOMATED 134 10*3/uL (130-400); RED BLOOD COUNT 4.47 10*6/uL (4.50-5.90); RED CELL DISTRI WIDTH 13.4 % (0-14.5); WHITE BLOOD COUNT 8.3 10*3/uL (4.8-10.8)
[2020-06-07 08:12] LABS: ALBUMIN 2.9 gm/dl (3.1-4.5); ALKALINE PHOSPHATASE 87 U/L (45-117); BUN 21 mg/dl (7-24); CHLORIDE 110 mmol/L (98-107); CREATININE 1.11 mg/dL (0.70-1.30); POTASSIUM 3.9 mmol/L (3.5-5.1); SGOT/AST 14 IU/L (3-35); SGPT/ALT 14 U/L (12-78); SODIUM 139 mmol/L (136-145); TOTAL PROTEIN 6.9 gm/dL (6.4-8.2)
[2020-06-07 08:18] LABS: BURR CELLS FEW; PLATELET SUFFICIENCY NORMAL (NORMAL); TOTAL CELLS COUNTED 100 #CELLS
[2020-06-08] VITALS (7 sets, daily range): BP systolic 105–130; BP diastolic 56–85
[2020-06-08 05:47] LABS: ALBUMIN 2.7 gm/dl (3.1-4.5); BUN 23 mg/dl (7-24); CHLORIDE 111 mmol/L (98-107); CREATININE 1.03 mg/dL (0.70-1.30); POTASSIUM 3.9 mmol/L (3.5-5.1); SGPT/ALT 15 U/L (12-78); SODIUM 141 mmol/L (136-145)
[2020-06-08 05:49] LABS: BASO % 0.1 % (0.0-1.0); HEMATOCRIT 38.2 % (42.0-52.0); LYMPH # 0.9 10*3/uL (1.3-4.4); LYMPH % 6.8 % (27.0-41.0); MEAN CELL VOLUME 89.3 fl (80.0-94.0); MEAN CORPUSCULAR HGB 29.2 pg (27.0-31.0); MEAN CORPUSCULAR HGB CONC 32.7 g/dl (33.0-37.0); MEAN PLATELET VOLUME 10.8 fl (9.6-12.3); MONO # 0.3 10*3/uL (0.1-1.0); MONO % 2.4 % (3.0-9.0); NEUT # 11.1 10*3/uL (2.3-7.9); NEUT % 88.6 % (47.0-73.0); PLATELET COUNT AUTOMATED 156 10*3/uL (130-400); RED BLOOD COUNT 4.28 10*6/uL (4.50-5.90); RED CELL DISTRI WIDTH 13.4 % (0-14.5); WHITE BLOOD COUNT 12.6 10*3/uL (4.8-10.8)
[2020-06-08 05:50] LABS: ALKALINE PHOSPHATASE 84 U/L (45-117); CPK 95 U/L (39-308); LDH 121 U/L (87-241); SGOT/AST 14 IU/L (3-35); TOTAL PROTEIN 6.7 gm/dL (6.4-8.2)
[2020-06-09] VITALS: BP 129/74
[2020-06-09 06:52] LABS: BASO % 0.2 % (0.0-1.0); LYMPH # 1.1 10*3/uL (1.3-4.4); LYMPH % 8.4 % (27.0-41.0); MEAN CELL VOLUME 88.7 fl (80.0-94.0); MEAN CORPUSCULAR HGB 29.3 pg (27.0-31.0); MEAN PLATELET VOLUME 10.6 fl (9.6-12.3); MONO # 0.4 10*3/uL (0.1-1.0); MONO % 3.3 % (3.0-9.0); NEUT # 11.4 10*3/uL (2.3-7.9); NEUT % 86.4 % (47.0-73.0); PLATELET COUNT AUTOMATED 161 10*3/uL (130-400); RED BLOOD COUNT 4.17 10*6/uL (4.50-5.90); RED CELL DISTRI WIDTH 13.3 % (0-14.5); WHITE BLOOD COUNT 13.2 10*3/uL (4.8-10.8)
[2020-06-09 07:28] LABS: CHLORIDE 110 mmol/L (98-107); POTASSIUM 3.7 mmol/L (3.5-5.1); SODIUM 142 mmol/L (136-145)
[2020-06-09 07:36] LABS: ALBUMIN 2.5 gm/dl (3.1-4.5); ALKALINE PHOSPHATASE 79 U/L (45-117); BUN 21 mg/dl (7-24); CREATININE 1.02 mg/dL (0.70-1.30); LDH 139 U/L (87-241); SGOT/AST 14 IU/L (3-35); SGPT/ALT 17 U/L (12-78); TOTAL PROTEIN 6.4 gm/dL (6.4-8.2)
[2020-06-09 07:37] LABS: CPK 59 U/L (39-308)
[2020-06-09 08:00] VITALS: BP 97/52
[2020-06-09] MEDS ORDERED: DOXYCYCLINE100 M3 PO (10:33)
== END 2020-06-09 14:17 | disposition home or self-care (01) | DRG 871 ==
LOC: ED 11:46 → EDHOLD 14:28 → ICCU 14:28 → 4E 17:17 → ICCU 20:31 → 5E 06-08 19:06
PROVIDERS: Emergency Medicine; Family Medicine; Internal Medicine Critical Care Medicine; ADMIT Internal Medicine; ATTEND Internal Medicine
PROC: 05HY33Z Insertion of Infusion Device into Upper Vein, Percutaneous Approach (ICD-10-PCS; principal; 2020-06-07)
DX: A41.9 Sepsis, unspecified organism (principal); J15.6 Pneumonia due to other Gram-negative bacteria; N17.0 Acute kidney failure with tubular necrosis; J96.01 Acute respiratory failure with hypoxia; R65.21 Severe sepsis with septic shock; J96.02 Acute respiratory failure with hypercapnia; E44.0 Moderate protein-calorie malnutrition; F32.3 Major depressive disorder, single episode, severe with psychotic features; D68.59 Other primary thrombophilia; F17.210 Nicotine dependence, cigarettes, uncomplicated; Z20.828 Contact with and (suspected) exposure to other viral communicable diseases; D64.9 Anemia, unspecified; R73.9 Hyperglycemia, unspecified; I95.9 Hypotension, unspecified; K21.9 Gastro-esophageal reflux disease without esophagitis; E83.39 Other disorders of phosphorus metabolism; Z79.899 Other long term (current) drug therapy; Z68.24 Body mass index [BMI] 24.0-24.9, adult; Z71.6 Tobacco abuse counseling

== ENCOUNTER 2020-08-30 12:47 | Inpatient (IN) | payer MEDICARE ==
[~2020-08-30] VITALS: Ht 177.8 cm; Wt 75.4 kg
[~2020-08-30 12:47] MED LIST changes: +DOXYCYCLINE100 M3 PO; +FEROSUL325 MG PO; +FLUVOXAMINE MA150 M1 PO; +NATURE'S BLEND F1 MG PO; +RISPERIDONE1 MG PO
[2020-08-30 12:58] VITALS: BP 105/54
[2020-08-30 13:47] LABS: ALBUMIN 3.2 gm/dl (3.1-4.5); ALKALINE PHOSPHATASE 96 U/L (45-117); BUN 28 mg/dl (7-24); CHLORIDE 107 mmol/L (98-107); CREATININE 1.92 mg/dL (0.70-1.30); POTASSIUM 3.7 mmol/L (3.5-5.1); SGOT/AST 15 IU/L (3-35); SGPT/ALT 17 U/L (12-78); SODIUM 138 mmol/L (136-145); TOTAL PROTEIN 7.5 gm/dL (6.4-8.2)
[2020-08-30 13:49] LABS: TROPONIN I < 0.015 ng/ml (<0.045)
[2020-08-30 14:14] LABS: BASO % 0.2 % (0.0-1.0); HEMATOCRIT 46.1 % (42.0-52.0); LYMPH # 1.5 10*3/uL (1.3-4.4); LYMPH % 10.3 % (27.0-41.0); MEAN CELL VOLUME 87.6 fl (80.0-94.0); MEAN CORPUSCULAR HGB 28.9 pg (27.0-31.0); MEAN PLATELET VOLUME 10.8 fl (9.6-12.3); MONO # 1.1 10*3/uL (0.1-1.0); MONO % 7.7 % (3.0-9.0); NEUT # 11.5 10*3/uL (2.3-7.9); NEUT % 81.2 % (47.0-73.0); PLATELET COUNT AUTOMATED 109 10*3/uL (130-400); RED BLOOD COUNT 5.26 10*6/uL (4.50-5.90); RED CELL DISTRI WIDTH 13.5 % (0-14.5); WHITE BLOOD COUNT 14.2 10*3/uL (4.8-10.8)
[2020-08-30 17:30] LABS: ABG BASE EXCESS -0.8 mmol/L (-2.0-2.0); ARTERIAL BLOOD GAS PH 7.458 (7.35-7.45)
[2020-08-30 21:30] VITALS: BP 122/70
[2020-08-31 00:40] VITALS: BP 116/66
[2020-08-31 06:24] VITALS: BP 142/64
[2020-08-31 06:32] LABS: ALBUMIN 3.1 gm/dl (3.1-4.5); CREATININE 1.54 mg/dL (0.70-1.30); POTASSIUM 4.3 mmol/L (3.5-5.1); TOTAL PROTEIN 6.6 gm/dL (6.4-8.2)
[2020-08-31 06:33] LABS: FREE T4 1.29 ng/dl (0.76-1.46)
[2020-08-31 06:38] LABS: THYROID STIM HORMONE (HS) 1.35 uIU/ml (0.358-4.75)
[2020-08-31 08:06] LABS: BASO % 0.3 % (0.0-1.0); EOS % 0.1 % (1.0-4.0); HEMATOCRIT 40.9 % (42.0-52.0); LYMPH # 1.1 10*3/uL (1.3-4.4); LYMPH % 9.5 % (27.0-41.0); MEAN CELL VOLUME 87.4 fl (80.0-94.0); MEAN CORPUSCULAR HGB 28.8 pg (27.0-31.0); MEAN PLATELET VOLUME 10.4 fl (9.6-12.3); MONO # 0.8 10*3/uL (0.1-1.0); MONO % 6.7 % (3.0-9.0); NEUT # 9.5 10*3/uL (2.3-7.9); NEUT % 80.8 % (47.0-73.0); PLATELET COUNT AUTOMATED 101 10*3/uL (130-400); RED BLOOD COUNT 4.68 10*6/uL (4.50-5.90); RED CELL DISTRI WIDTH 13.8 % (0-14.5); WHITE BLOOD COUNT 11.8 10*3/uL (4.8-10.8)
[2020-08-31] MEDS ORDERED: VITAMIN D325 MCG PO (16:24)
[2020-08-31] MEDS ORDERED: BENZTROPINE MESY1 MG PO (16:24)
[2020-08-31 18:00] VITALS: BP 115/70
[2020-09-01 01:00] VITALS: BP 122/67
[2020-09-01 04:15] VITALS: BP 102/63
[2020-09-01 07:34] LABS: BASO % 0.2 % (0.0-1.0); EOS # 0.1 10*3/uL (0.0-0.4); EOS % 0.7 % (1.0-4.0); HEMATOCRIT 40.2 % (42.0-52.0); LYMPH # 1.1 10*3/uL (1.3-4.4); LYMPH % 11.1 % (27.0-41.0); MEAN CELL VOLUME 88.4 fl (80.0-94.0); MEAN CORPUSCULAR HGB 28.6 pg (27.0-31.0); MEAN CORPUSCULAR HGB CONC 32.3 g/dl (33.0-37.0); MEAN PLATELET VOLUME 10.9 fl (9.6-12.3); MONO # 0.6 10*3/uL (0.1-1.0); MONO % 6.4 % (3.0-9.0); NEUT # 7.6 10*3/uL (2.3-7.9); NEUT % 80.3 % (47.0-73.0); PLATELET COUNT AUTOMATED 92 10*3/uL (130-400); RED BLOOD COUNT 4.55 10*6/uL (4.50-5.90); RED CELL DISTRI WIDTH 13.7 % (0-14.5); WHITE BLOOD COUNT 9.5 10*3/uL (4.8-10.8)
[2020-09-01 08:00] VITALS: BP 102/63
[2020-09-01 08:07] LABS: BUN 20 mg/dl (7-24); CHLORIDE 109 mmol/L (98-107); CREATININE 0.99 mg/dL (0.70-1.30); POTASSIUM 3.5 mmol/L (3.5-5.1); SODIUM 139 mmol/L (136-145)
[2020-09-01 12:00] VITALS: BP 98/67
[2020-09-01 16:00] VITALS: BP 90/42
[2020-09-01 20:00] VITALS: BP 116/63
[2020-09-02] VITALS: BP 115/75
[2020-09-02 04:00] VITALS: BP 104/76
[2020-09-02 07:55] LABS: BUN 19 mg/dl (7-24); CHLORIDE 107 mmol/L (98-107); POTASSIUM 3.5 mmol/L (3.5-5.1); SODIUM 140 mmol/L (136-145)
[2020-09-02 07:56] LABS: CREATININE 0.96 mg/dL (0.70-1.30)
[2020-09-02 08:00] VITALS: BP 105/82
[2020-09-02 12:00] VITALS: BP 106/58
[2020-09-02 12:16] LABS: BILIRUBIN Negative (Negative); BLOOD 1+ (Negative); CLARITY Clear (Clear); COLOR Dark Yellow (Yellow); GLUCOSE Negative (Negative); KETONE Trace (Negative); LEUKO ESTERASE Trace (Negative); NITRITE Negative (Negative); PH 5.5 (4.5-8.0); SPECIFIC GRAVITY 1.025 (1.001-1.030)
[2020-09-02 12:24] LABS: URINE AMPHETAMINES < 1000 (1000ng/ml); URINE BARBITURATES < 200 (200ng/ml); URINE BENZODIAZEPINES < 200 (200ng/ml); URINE CANNABINOIDS (THC) < 50 (50ng/ml); URINE COCAINE < 300 (300ng/ml); URINE METHADONE < 300 (300ng/ml); URINE OPIATES > 300 (300ng/ml)
[2020-09-02 12:30] LABS: URINE PHENCYCLIDINE < 25 (25ng/ml)
[2020-09-02 12:32] LABS: BACTERIA 1+; MUCOUS 3+
[2020-09-02 16:00] VITALS: BP 118/72
[2020-09-02 20:00] VITALS: BP 113/77
[2020-09-03] VITALS: BP 103/64; BP 124/78
[2020-09-03 08:00] VITALS: BP 103/62
[2020-09-03 12:00] VITALS: BP 100/58
[2020-09-03 16:00] VITALS: BP 103/64
[2020-09-03 20:00] VITALS: BP 89/51
[2020-09-04] VITALS: BP 121/77
[2020-09-04 06:38] LABS: BUN 17 mg/dl (7-24); CHLORIDE 107 mmol/L (98-107); POTASSIUM 3.8 mmol/L (3.5-5.1); SODIUM 139 mmol/L (136-145)
[2020-09-04 06:39] LABS: CREATININE 0.84 mg/dL (0.70-1.30)
[2020-09-04 08:00] VITALS: BP 118/69
[2020-09-04 12:00] VITALS: BP 111/69
[2020-09-04 16:00] VITALS: BP 92/67
[2020-09-04 20:00] VITALS: BP 114/66
[2020-09-05] VITALS: BP 103/64
[2020-09-05 06:42] LABS: BASO % 0.4 % (0.0-1.0); EOS # 0.1 10*3/uL (0.0-0.4); HEMATOCRIT 41.1 % (42.0-52.0); LYMPH # 1.2 10*3/uL (1.3-4.4); LYMPH % 15.4 % (27.0-41.0); MEAN CELL VOLUME 87.4 fl (80.0-94.0); MEAN CORPUSCULAR HGB 28.7 pg (27.0-31.0); MEAN CORPUSCULAR HGB CONC 32.8 g/dl (33.0-37.0); MEAN PLATELET VOLUME 10.4 fl (9.6-12.3); MONO # 0.6 10*3/uL (0.1-1.0); MONO % 7.2 % (3.0-9.0); NEUT % 74.8 % (47.0-73.0); PLATELET COUNT AUTOMATED 133 10*3/uL (130-400)
[2020-09-05 06:53] LABS: ALBUMIN 2.3 gm/dl (3.1-4.5); ALKALINE PHOSPHATASE 92 U/L (45-117); BUN 19 mg/dl (7-24); CHLORIDE 105 mmol/L (98-107); CREATININE 0.82 mg/dL (0.70-1.30); SGOT/AST 16 IU/L (3-35); SGPT/ALT 22 U/L (12-78); SODIUM 138 mmol/L (136-145); TOTAL PROTEIN 6.4 gm/dL (6.4-8.2)
[2020-09-05 08:00] VITALS: BP 102/62
[2020-09-05 12:00] VITALS: BP 110/68
[2020-09-05] MEDS ORDERED: CEFUROXIME AXE500 MG PO ×2 (15:43)
[2020-09-05] MEDS ORDERED: OLANZAPINE2.5 MG PO ×2 (15:43)
[2020-09-05] MEDS ORDERED: LEVOFLOXACIN750 M2 PO (15:43)
[2020-09-05] MEDS ORDERED: FLUVOXAMINE50 MG PO (19:06)
[2020-09-05 20:00] VITALS: BP 102/63
[2020-09-06] VITALS: BP 112/74
[2020-09-06 08:00] VITALS: BP 101/76
[2020-09-06 12:00] VITALS: BP 111/68
== END 2020-09-06 14:45 | disposition home health service (06) | DRG 871 ==
LOC: ED 12:47 → EDHOLD 15:22 → 5E 15:22 → 4E 09-01 00:52 → 5E 09-01 16:26
PROVIDERS: Emergency Medicine; Student in an Organized Health Care Education/Training Program; ADMIT Internal Medicine; ATTEND Internal Medicine
DX: A41.9 Sepsis, unspecified organism (principal); G93.41 Metabolic encephalopathy; J18.9 Pneumonia, unspecified organism; N17.9 Acute kidney failure, unspecified; E44.0 Moderate protein-calorie malnutrition; F32.3 Major depressive disorder, single episode, severe with psychotic features; F41.9 Anxiety disorder, unspecified; Z20.822 Contact with and (suspected) exposure to COVID-19; K21.9 Gastro-esophageal reflux disease without esophagitis; R73.9 Hyperglycemia, unspecified; D69.6 Thrombocytopenia, unspecified; F17.200 Nicotine dependence, unspecified, uncomplicated; Z68.23 Body mass index [BMI] 23.0-23.9, adult

== ENCOUNTER 2021-05-29 14:17 | Inpatient (IN) | payer MEDICARE ==
[~2021-05-29] VITALS: Ht 177.8 cm; Wt 83.1 kg
[~2021-05-29 14:17] MED LIST changes: +BENZTROPINE MESY1 MG PO; +CEFUROXIME AXE500 MG PO; +LEVOFLOXACIN750 M2 PO; +OLANZAPINE2.5 MG PO; +VITAMIN D325 MCG PO
[2021-05-29 14:21] VITALS: BP 112/66
[2021-05-29 15:13] LABS: ACT PARTIAL THROMBO TIME 26.1 SECONDS (20.0-32.1); INTERNATIONAL NORM RATIO 1.1 (2.0-3.5)
[2021-05-29 15:22] LABS: ALBUMIN 2.6 gm/dl (3.1-4.5); ALKALINE PHOSPHATASE 496 U/L (45-117); BUN 19 mg/dl (7-24); CHLORIDE 97 mmol/L (98-107); CREATININE 1.42 mg/dL (0.70-1.30); LIPASE 1030 U/L (73-393); POTASSIUM 3.3 mmol/L (3.5-5.1); SGOT/AST 60 IU/L (3-35); SGPT/ALT 138 U/L (12-78); SODIUM 130 mmol/L (136-145); TOTAL PROTEIN 6.8 gm/dL (6.4-8.2)
[2021-05-29 15:23] LABS: HEMATOCRIT 42.8 % (42.0-52.0); MEAN CELL VOLUME 88.2 fl (80.0-94.0); MEAN CORPUSCULAR HGB 30.3 pg (27.0-31.0); MEAN CORPUSCULAR HGB CONC 34.3 g/dl (33.0-37.0); MEAN PLATELET VOLUME 10.5 fl (9.6-12.3); PLATELET COUNT AUTOMATED 115 10*3/uL (130-400); RED BLOOD COUNT 4.85 10*6/uL (4.50-5.90); WHITE BLOOD COUNT 3.4 10*3/uL (4.8-10.8)
[2021-05-29 15:24] LABS: TROPONIN I < 0.015 ng/ml (<0.045)
[2021-05-29 15:56] LABS: ATYPICAL LYMPHS 3 % (0-0); BURR CELLS MODERATE; TOTAL CELLS COUNTED 100 #CELLS
[2021-05-29 15:57] LABS: PLATELET SUFFICIENCY LOW (NORMAL)
[2021-05-29 16:25] VITALS: BP 116/64
[2021-05-29 18:25] VITALS: BP 112/68
[2021-05-29] MEDS ORDERED: FEROSUL325 MG PO (19:59)
[2021-05-29] MEDS ORDERED: FLUVOXAMINE100 MG PO (20:00)
[2021-05-29] MEDS ORDERED: VITAMIN D325 MCG PO (20:01)
[2021-05-29] MEDS ORDERED: ZYPREXA5 M1 PO (20:02)
[2021-05-29] MEDS ORDERED: TYLENOL325 M3 PO (20:02)
[2021-05-29] MEDS ORDERED: SINGULAIR10 M1 PO (20:03)
[2021-05-29] MEDS ORDERED: NATURE'S BLEND F1 MG PO (20:03)
[2021-05-29] MEDS ORDERED: BENZTROPINE ME0.5 MG PO (20:04)
[2021-05-29] MEDS ORDERED: PROTONIX40 MG PO (20:04)
[2021-05-29 20:32] VITALS: BP 114/68
[2021-05-29 23:20] VITALS: BP 100/40
[2021-05-30 00:30] VITALS: BP 82/42
[2021-05-30 04:00] VITALS: BP 106/53
[2021-05-30 06:03] LABS: HEMATOCRIT 37.2 % (42.0-52.0); MEAN CORPUSCULAR HGB 30.4 pg (27.0-31.0); MEAN CORPUSCULAR HGB CONC 34.1 g/dl (33.0-37.0); MEAN PLATELET VOLUME 11.2 fl (9.6-12.3); PLATELET COUNT AUTOMATED 81 10*3/uL (130-400); RED BLOOD COUNT 4.18 10*6/uL (4.50-5.90); RED CELL DISTRI WIDTH 14.2 % (0-14.5); WHITE BLOOD COUNT 9.3 10*3/uL (4.8-10.8)
[2021-05-30 06:15] LABS: ACT PARTIAL THROMBO TIME 27.9 SECONDS (20.0-32.1); INTERNATIONAL NORM RATIO 1.1 (2.0-3.5)
[2021-05-30 06:16] LABS: ALBUMIN 2.1 gm/dl (3.1-4.5); ALKALINE PHOSPHATASE 354 U/L (45-117); BUN 22 mg/dl (7-24); CHLORIDE 100 mmol/L (98-107); CREATININE 1.16 mg/dL (0.70-1.30); LIPASE 133 U/L (73-393); POTASSIUM 3.5 mmol/L (3.5-5.1); SGOT/AST 57 IU/L (3-35); SGPT/ALT 104 U/L (12-78); SODIUM 134 mmol/L (136-145); TOTAL PROTEIN 6.1 gm/dL (6.4-8.2)
[2021-05-30 06:26] LABS: TOTAL CELLS COUNTED 100 #CELLS; VACUOLATION OF NEUTROPHILS SLIGHT
[2021-05-30 06:27] LABS: BURR CELLS FEW; PLATELET SUFFICIENCY LOW (NORMAL)
[2021-05-30 08:00] VITALS: BP 106/71
[2021-05-30 11:54] VITALS: BP 91/67
[2021-05-30 16:00] VITALS: BP 147/86
[2021-05-30 20:00] VITALS: BP 108/70
[2021-05-31] VITALS: BP 107/68
[2021-05-31 02:15] LABS: BILIRUBIN 2+ (Negative); BLOOD Trace-Lysed (Negative); CLARITY Clear (Clear); COLOR Dark Yellow (Yellow); GLUCOSE Negative (Negative); KETONE Trace (Negative); LEUKO ESTERASE Negative (Negative); NITRITE Negative (Negative); PH 5.5 (4.5-8.0); SPECIFIC GRAVITY >= 1.030 (1.001-1.030)
[2021-05-31 02:26] LABS: BACTERIA 1+
[2021-05-31 04:00] VITALS: BP 111/82
[2021-05-31 05:49] LABS: ALBUMIN 1.9 gm/dl (3.1-4.5); ALKALINE PHOSPHATASE 291 U/L (45-117); CHLORIDE 106 mmol/L (98-107); CREATININE 0.92 mg/dL (0.70-1.30); POTASSIUM 3.7 mmol/L (3.5-5.1); SGOT/AST 42 IU/L (3-35); SGPT/ALT 79 U/L (12-78); SODIUM 139 mmol/L (136-145); TOTAL PROTEIN 5.7 gm/dL (6.4-8.2)
[2021-05-31 06:04] LABS: BASO % 0.1 % (0.0-1.0); HEMATOCRIT 35.6 % (42.0-52.0); LYMPH # 0.7 10*3/uL (1.3-4.4); LYMPH % 8.6 % (27.0-41.0); MEAN CELL VOLUME 89.7 fl (80.0-94.0); MEAN CORPUSCULAR HGB 30.5 pg (27.0-31.0); MEAN PLATELET VOLUME 11.6 fl (9.6-12.3); MONO # 0.7 10*3/uL (0.1-1.0); MONO % 7.6 % (3.0-9.0); NEUT # 7.2 10*3/uL (2.3-7.9); PLATELET COUNT AUTOMATED 96 10*3/uL (130-400); RED BLOOD COUNT 3.97 10*6/uL (4.50-5.90); WHITE BLOOD COUNT 8.7 10*3/uL (4.8-10.8)
[2021-05-31 06:09] LABS: BUN 32 mg/dl (7-24)
[2021-05-31 08:00] VITALS: BP 102/55
[2021-05-31 12:00] VITALS: BP 107/70
[2021-05-31 16:00] VITALS: BP 123/79
[2021-05-31 20:00] VITALS: BP 147/91
[2021-06-01] VITALS: BP 114/83
[2021-06-01 05:59] LABS: ALBUMIN 1.9 gm/dl (3.1-4.5); ALKALINE PHOSPHATASE 284 U/L (45-117); BUN 31 mg/dl (7-24); CHLORIDE 107 mmol/L (98-107); CREATININE 0.86 mg/dL (0.70-1.30); POTASSIUM 3.3 mmol/L (3.5-5.1); SGOT/AST 37 IU/L (3-35); SGPT/ALT 74 U/L (12-78); SODIUM 137 mmol/L (136-145); TOTAL PROTEIN 5.6 gm/dL (6.4-8.2)
[2021-06-01 06:09] LABS: EOS # 0.1 10*3/uL (0.0-0.4); EOS % 0.8 % (1.0-4.0); HEMATOCRIT 35.9 % (42.0-52.0); LYMPH # 0.9 10*3/uL (1.3-4.4); LYMPH % 11.6 % (27.0-41.0); MEAN CELL VOLUME 90.7 fl (80.0-94.0); MEAN CORPUSCULAR HGB 30.1 pg (27.0-31.0); MEAN CORPUSCULAR HGB CONC 33.1 g/dl (33.0-37.0); MEAN PLATELET VOLUME 11.3 fl (9.6-12.3); MONO # 0.5 10*3/uL (0.1-1.0); MONO % 6.8 % (3.0-9.0); NEUT % 80.1 % (47.0-73.0); PLATELET COUNT AUTOMATED 92 10*3/uL (130-400); RED BLOOD COUNT 3.96 10*6/uL (4.50-5.90); RED CELL DISTRI WIDTH 14.2 % (0-14.5); WHITE BLOOD COUNT 7.5 10*3/uL (4.8-10.8)
[2021-06-01 08:00] VITALS: BP 136/68
[2021-06-01 12:00] VITALS: BP 128/73
[2021-06-01 16:00] VITALS: BP 138/72
[2021-06-01 20:00] VITALS: BP 142/63
[2021-06-02 00:04] VITALS: BP 121/60
[2021-06-02 06:10] LABS: HEMATOCRIT 36.4 % (42.0-52.0); MEAN CELL VOLUME 89.7 fl (80.0-94.0); MEAN CORPUSCULAR HGB 30.3 pg (27.0-31.0); MEAN CORPUSCULAR HGB CONC 33.8 g/dl (33.0-37.0); MEAN PLATELET VOLUME 11.2 fl (9.6-12.3); PLATELET COUNT AUTOMATED 102 10*3/uL (130-400); RED BLOOD COUNT 4.06 10*6/uL (4.50-5.90); RED CELL DISTRI WIDTH 13.8 % (0-14.5); WHITE BLOOD COUNT 6.6 10*3/uL (4.8-10.8)
[2021-06-02 06:26] LABS: ALBUMIN 1.9 gm/dl (3.1-4.5); ALKALINE PHOSPHATASE 272 U/L (45-117); CHLORIDE 104 mmol/L (98-107); CREATININE 0.86 mg/dL (0.70-1.30); POTASSIUM 3.6 mmol/L (3.5-5.1); SGOT/AST 31 IU/L (3-35); SGPT/ALT 62 U/L (12-78); SODIUM 137 mmol/L (136-145); TOTAL PROTEIN 5.8 gm/dL (6.4-8.2)
[2021-06-02 06:40] LABS: ATYPICAL LYMPHS 1 % (0-0); PLASMA CELL 1 % (0-0); PLATELET SUFFICIENCY LOW (NORMAL); POLYCHROMASIA SLIGHT; TOTAL CELLS COUNTED 100 #CELLS
[2021-06-02 06:41] LABS: OVALOCYTES FEW; ROULEAUX SLIGHT
[2021-06-02 06:45] LABS: BUN 15 mg/dl (7-24)
[2021-06-02 08:00] VITALS: BP 127/68
[2021-06-02 12:00] VITALS: BP 101/48
[2021-06-02 15:57] VITALS: BP 114/63
[2021-06-02 20:00] VITALS: BP 115/58
[2021-06-03] VITALS: BP 137/63
[2021-06-03 06:28] LABS: HEMATOCRIT 37.9 % (42.0-52.0); MEAN CORPUSCULAR HGB 30.3 pg (27.0-31.0); MEAN PLATELET VOLUME 11.4 fl (9.6-12.3); PLATELET COUNT AUTOMATED 115 10*3/uL (130-400); RED BLOOD COUNT 4.26 10*6/uL (4.50-5.90); RED CELL DISTRI WIDTH 13.5 % (0-14.5); WHITE BLOOD COUNT 6.1 10*3/uL (4.8-10.8)
[2021-06-03 06:40] LABS: ALKALINE PHOSPHATASE 279 U/L (45-117); BUN 11 mg/dl (7-24); CHLORIDE 102 mmol/L (98-107); POTASSIUM 3.3 mmol/L (3.5-5.1); SGOT/AST 29 IU/L (3-35); SGPT/ALT 58 U/L (12-78); SODIUM 136 mmol/L (136-145); TOTAL PROTEIN 6.1 gm/dL (6.4-8.2)
[2021-06-03 06:50] LABS: PLATELET SUFFICIENCY LOW (NORMAL); TOTAL CELLS COUNTED 100 #CELLS
[2021-06-03 08:00] VITALS: BP 112/67
[2021-06-03 11:18] LABS: ACT PARTIAL THROMBO TIME 23.6 SECONDS (20.0-32.1)
[2021-06-03 12:00] VITALS: BP 134/83
[2021-06-03 16:00] VITALS: BP 135/89
[2021-06-03 20:00] VITALS: BP 132/67
[2021-06-04] VITALS: BP 136/89
[2021-06-04 08:00] VITALS: BP 126/80
[2021-06-04 16:00] VITALS: BP 137/81
[2021-06-04 20:00] VITALS: BP 119/78
[2021-06-05] VITALS: BP 141/86
[2021-06-05] MEDS ORDERED: VITAMIN D3125 MCG PO (01:04)
[2021-06-05 06:38] LABS: HEMATOCRIT 40.2 % (42.0-52.0); MEAN CELL VOLUME 89.5 fl (80.0-94.0); MEAN CORPUSCULAR HGB 29.8 pg (27.0-31.0); MEAN CORPUSCULAR HGB CONC 33.3 g/dl (33.0-37.0); MEAN PLATELET VOLUME 10.9 fl (9.6-12.3); PLATELET COUNT AUTOMATED 146 10*3/uL (130-400); RED BLOOD COUNT 4.49 10*6/uL (4.50-5.90); RED CELL DISTRI WIDTH 13.2 % (0-14.5); WHITE BLOOD COUNT 5.5 10*3/uL (4.8-10.8)
[2021-06-05 06:53] LABS: ALBUMIN 2.2 gm/dl (3.1-4.5); BUN 15 mg/dl (7-24); CHLORIDE 102 mmol/L (98-107); CREATININE 0.92 mg/dL (0.70-1.30); POTASSIUM 4.2 mmol/L (3.5-5.1); SGOT/AST 34 IU/L (3-35); SGPT/ALT 59 U/L (12-78); SODIUM 136 mmol/L (136-145); TOTAL PROTEIN 6.6 gm/dL (6.4-8.2)
[2021-06-05 06:54] LABS: ALKALINE PHOSPHATASE 227 U/L (45-117)
[2021-06-05 08:00] VITALS: BP 130/85
[2021-06-05 08:02] LABS: BASOPHILS 2 % (0-1); TOTAL CELLS COUNTED 100 #CELLS
[2021-06-05 08:03] LABS: OVALOCYTES FEW; PLATELET SUFFICIENCY NORMAL (NORMAL)
[2021-06-05 12:00] VITALS: BP 125/86
[2021-06-05 17:00] VITALS: BP 122/93
[2021-06-05 20:00] VITALS: BP 98/43
[2021-06-06] VITALS: BP 99/53
[2021-06-06 08:00] VITALS: BP 128/84
[2021-06-06 12:00] VITALS: BP 105/64
[2021-06-06 16:00] VITALS: BP 91/53
[2021-06-06] MEDS ORDERED: CIPRO500 MG PO (16:09)
== END 2021-06-06 17:19 | disposition home or self-care (01) | DRG 871 ==
LOC: ED 14:17 → ICCU 19:40 → EDHOLD 19:40 → 5E 19:40 → ICCU 20:09 → 4E 05-31 13:54 → 5E 06-01 18:10
PROVIDERS: Emergency Medicine; Internal Medicine Gastroenterology; Internal Medicine Nephrology; ADMIT Internal Medicine; ATTEND Internal Medicine
DX: A41.9 Sepsis, unspecified organism (principal); J96.01 Acute respiratory failure with hypoxia; G93.41 Metabolic encephalopathy; E43 Unspecified severe protein-calorie malnutrition; F32.3 Major depressive disorder, single episode, severe with psychotic features; K80.31 Calculus of bile duct with cholangitis, unspecified, with obstruction; E87.1 Hypo-osmolality and hyponatremia; N17.9 Acute kidney failure, unspecified; Z20.822 Contact with and (suspected) exposure to COVID-19; N28.1 Cyst of kidney, acquired; K44.9 Diaphragmatic hernia without obstruction or gangrene; K21.9 Gastro-esophageal reflux disease without esophagitis; F17.210 Nicotine dependence, cigarettes, uncomplicated; D69.6 Thrombocytopenia, unspecified; R91.1 Solitary pulmonary nodule; E80.6 Other disorders of bilirubin metabolism; R65.20 Severe sepsis without septic shock; J44.9 Chronic obstructive pulmonary disease, unspecified; R74.01 Elevation of levels of liver transaminase levels; I10 Essential (primary) hypertension; R73.9 Hyperglycemia, unspecified; R00.1 Bradycardia, unspecified; E87.6 Hypokalemia; D64.9 Anemia, unspecified; Z71.6 Tobacco abuse counseling; Z79.1 Long term (current) use of non-steroidal anti-inflammatories (NSAID); Z79.899 Other long term (current) drug therapy; Z71.3 Dietary counseling and surveillance; Z68.26 Body mass index [BMI] 26.0-26.9, adult

== ENCOUNTER 2022-09-08 11:15 | Inpatient (IN) | payer MEDICARE ==
[~2022-09-08] VITALS: Ht 177.8 cm; Wt 77.2 kg
[~2022-09-08 11:15] MED LIST changes: +CIPRO500 MG PO; +FLUVOXAMINE100 MG PO; +PROTONIX40 MG PO; +SINGULAIR10 M1 PO; +TYLENOL325 M3 PO; +VITAMIN D3125 MCG PO; +ZYPREXA5 M1 PO
[2022-09-08 11:24] VITALS: BP 112/90
[2022-09-08 12:04] LABS: BASO % 0.3 % (0.0-1.0); EOS # 0.1 10*3/uL (0.0-0.4); HEMATOCRIT 44.3 % (42.0-52.0); LYMPH # 1.6 10*3/uL (1.3-4.4); LYMPH % 20.9 % (27.0-41.0); MEAN CELL VOLUME 90.6 fl (80.0-94.0); MEAN CORPUSCULAR HGB 31.7 pg (27.0-31.0); MEAN PLATELET VOLUME 11.3 fl (9.6-12.3); MONO # 0.7 10*3/uL (0.1-1.0); MONO % 9.1 % (3.0-9.0); NEUT # 5.3 10*3/uL (2.3-7.9); NEUT % 68.3 % (47.0-73.0); PLATELET COUNT AUTOMATED 116 10*3/uL (130-400); RED BLOOD COUNT 4.89 10*6/uL (4.50-5.90); RED CELL DISTRI WIDTH 12.7 % (0-14.5); WHITE BLOOD COUNT 7.8 10*3/uL (4.8-10.8)
[2022-09-08 12:13] LABS: ACT PARTIAL THROMBO TIME 25.5 SECONDS (20.0-32.1)
[2022-09-08 12:28] LABS: ALKALINE PHOSPHATASE 99 U/L (46-116); BUN 28 mg/dl (9-23); CHLORIDE 106 mmol/L (98-107); LIPASE 26 U/L (12-53); POTASSIUM 3.7 mmol/L (3.4-5.1); SGPT/ALT 26 U/L (10-49); TOTAL PROTEIN 6.6 gm/dL (6.0-8.0)
[2022-09-08 13:23] LABS: BILIRUBIN Negative (Negative); BLOOD Negative (Negative); CLARITY Clear (Clear); COLOR Yellow (Yellow); GLUCOSE Negative (Negative); KETONE Trace (Negative); LEUKO ESTERASE 1+ (Negative); NITRITE Negative (Negative); SPECIFIC GRAVITY >= 1.030 (1.001-1.030)
[2022-09-08 13:35] LABS: BACTERIA 2+; EPITHELIAL CELLS 0-2; HYALINE CAST 0-2; RBC 0-2 rbc/hpf (0-2)
[2022-09-08 14:19] VITALS: BP 108/67
[2022-09-08 16:30] VITALS: BP 110/73
[2022-09-08] MEDS ORDERED: ATORVASTATIN CA40 M1 PO (17:21)
[2022-09-08 20:00] VITALS: BP 99/62
[2022-09-09] VITALS: BP 112/70
[2022-09-09 08:00] VITALS: BP 102/74
[2022-09-09 12:00] VITALS: BP 98/78
[2022-09-09 16:00] VITALS: BP 87/62
[2022-09-09 17:05] VITALS: BP 100/64
[2022-09-09 17:44] LABS: BASO % 0.4 % (0.0-1.0); EOS # 0.2 10*3/uL (0.0-0.4); EOS % 1.6 % (1.0-4.0); HEMATOCRIT 43.4 % (42.0-52.0); LYMPH # 2.1 10*3/uL (1.3-4.4); LYMPH % 21.6 % (27.0-41.0); MEAN CELL VOLUME 90.2 fl (80.0-94.0); MEAN CORPUSCULAR HGB 32.2 pg (27.0-31.0); MEAN CORPUSCULAR HGB CONC 35.7 g/dl (33.0-37.0); MONO # 0.7 10*3/uL (0.1-1.0); MONO % 6.8 % (3.0-9.0); NEUT # 6.6 10*3/uL (2.3-7.9); NEUT % 69.2 % (47.0-73.0); PLATELET COUNT AUTOMATED 111 10*3/uL (130-400); RED BLOOD COUNT 4.81 10*6/uL (4.50-5.90); RED CELL DISTRI WIDTH 12.6 % (0-14.5); WHITE BLOOD COUNT 9.5 10*3/uL (4.8-10.8)
[2022-09-09 18:01] LABS: CHLORIDE 106 mmol/L (98-107); POTASSIUM 3.7 mmol/L (3.4-5.1)
[2022-09-09 18:14] LABS: BUN 17 mg/dl (9-23)
[2022-09-09 20:00] VITALS: BP 93/52
[2022-09-10] VITALS: BP 103/78
[2022-09-10 08:00] VITALS: BP 92/58
== END 2022-09-10 10:33 | disposition home or self-care (01) | DRG 641 ==
LOC: ED 11:15 → EDHOLD 13:23 → 5E 13:23 → EDHOLD 13:23 → 5E 13:47
PROVIDERS: Emergency Medicine; ADMIT Internal Medicine; ATTEND Internal Medicine
DX: E86.0 Dehydration (principal); F32.3 Major depressive disorder, single episode, severe with psychotic features; D69.6 Thrombocytopenia, unspecified; K21.9 Gastro-esophageal reflux disease without esophagitis; Z72.0 Tobacco use; Z71.6 Tobacco abuse counseling

== ENCOUNTER 2022-10-16 14:07 | Inpatient (IN) | payer MEDICARE ==
[~2022-10-16] VITALS: Ht 177.8 cm; Wt 74.5 kg
[~2022-10-16 14:07] MED LIST changes: +ATORVASTATIN CA40 M1 PO
[2022-10-16 14:09] VITALS: BP 88/44
[2022-10-16] MEDS ORDERED: CLOMIPRAMINE HC50 MG PO (14:20)
[2022-10-16] MEDS ORDERED: OLANZAPINE5 MG PO (14:22)
[2022-10-16] MEDS ORDERED: VITAMIN D350 MC2 PO (14:24)
[2022-10-16 15:16] LABS: BASO % 0.5 % (0.0-1.0); EOS # 0.1 10*3/uL (0.0-0.4); EOS % 1.2 % (1.0-4.0); HEMATOCRIT 40.4 % (42.0-52.0); LYMPH # 1.8 10*3/uL (1.3-4.4); LYMPH % 23.1 % (27.0-41.0); MEAN CELL VOLUME 93.5 fl (80.0-94.0); MEAN CORPUSCULAR HGB 31.7 pg (27.0-31.0); MEAN CORPUSCULAR HGB CONC 33.9 g/dl (33.0-37.0); MEAN PLATELET VOLUME 10.4 fl (9.6-12.3); MONO # 0.5 10*3/uL (0.1-1.0); MONO % 6.5 % (3.0-9.0); NEUT # 5.3 10*3/uL (2.3-7.9); NEUT % 68.3 % (47.0-73.0); PLATELET COUNT AUTOMATED 147 10*3/uL (130-400); RED BLOOD COUNT 4.32 10*6/uL (4.50-5.90); RED CELL DISTRI WIDTH 13.5 % (0-14.5); WHITE BLOOD COUNT 7.7 10*3/uL (4.8-10.8)
[2022-10-16 15:30] LABS: ALKALINE PHOSPHATASE 68 U/L (46-116); BUN 30 mg/dl (9-23); CHLORIDE 103 mmol/L (98-107); POTASSIUM 4.3 mmol/L (3.4-5.1); SGPT/ALT 13 U/L (10-49); TOTAL PROTEIN 6.3 gm/dL (6.0-8.0)
[2022-10-16 16:20] LABS: BILIRUBIN Negative (Negative); BLOOD Negative (Negative); CLARITY Clear (Clear); COLOR Dark Yellow (Yellow); GLUCOSE Negative (Negative); KETONE Trace (Negative); LEUKO ESTERASE Trace (Negative); NITRITE Negative (Negative); PH 5.5 (4.5-8.0); SPECIFIC GRAVITY 1.025 (1.001-1.030)
[2022-10-16 16:27] LABS: URINE AMPHETAMINES Negative (1000ng/ml); URINE BARBITURATES Negative (200ng/ml); URINE BENZODIAZEPINES Negative (200ng/ml); URINE CANNABINOIDS (THC) Negative (50ng/ml); URINE COCAINE Negative (300ng/ml); URINE METHADONE Negative (300ng/ml); URINE OPIATES Negative (300ng/ml); URINE PHENCYCLIDINE Negative (25ng/ml)
[2022-10-16 16:41] LABS: MUCOUS 2+
[2022-10-16 16:42] LABS: BACTERIA 1+; EPITHELIAL CELLS 0-2; HYALINE CAST 0-2
[2022-10-16 20:55] VITALS: BP 94/51
[2022-10-16 21:15] VITALS: BP 116/72
[2022-10-17] VITALS: BP 105/68
[2022-10-17 05:51] LABS: BUN 28 mg/dl (9-23); CHLORIDE 105 mmol/L (98-107); POTASSIUM 4.3 mmol/L (3.4-5.1)
[2022-10-17 06:16] LABS: BASO % 0.4 % (0.0-1.0); EOS # 0.1 10*3/uL (0.0-0.4); EOS % 1.6 % (1.0-4.0); HEMATOCRIT 40.4 % (42.0-52.0); LYMPH # 1.5 10*3/uL (1.3-4.4); LYMPH % 21.7 % (27.0-41.0); MEAN CELL VOLUME 93.3 fl (80.0-94.0); MEAN CORPUSCULAR HGB 31.9 pg (27.0-31.0); MEAN CORPUSCULAR HGB CONC 34.2 g/dl (33.0-37.0); MEAN PLATELET VOLUME 10.5 fl (9.6-12.3); MONO # 0.5 10*3/uL (0.1-1.0); MONO % 7.2 % (3.0-9.0); NEUT # 4.8 10*3/uL (2.3-7.9); NEUT % 68.7 % (47.0-73.0); PLATELET COUNT AUTOMATED 133 10*3/uL (130-400); RED BLOOD COUNT 4.33 10*6/uL (4.50-5.90); RED CELL DISTRI WIDTH 13.3 % (0-14.5)
[2022-10-17 08:00] VITALS: BP 124/75
[2022-10-17 12:00] VITALS: BP 126/70
[2022-10-17 16:00] VITALS: BP 93/57
== END 2022-10-17 18:14 | DRG 641 ==
LOC: ED 14:07 → EDHOLD 19:40 → 4E 19:40
PROVIDERS: Internal Medicine; ADMIT Internal Medicine; ATTEND Internal Medicine
DX: E86.0 Dehydration (principal); N17.9 Acute kidney failure, unspecified; F33.3 Major depressive disorder, recurrent, severe with psychotic symptoms; F42.9 Obsessive-compulsive disorder, unspecified; K21.9 Gastro-esophageal reflux disease without esophagitis; F17.210 Nicotine dependence, cigarettes, uncomplicated; Z79.1 Long term (current) use of non-steroidal anti-inflammatories (NSAID); Z79.899 Other long term (current) drug therapy; Z71.6 Tobacco abuse counseling

== ENCOUNTER → 2022-12-04 | Outpatient (CLI) | payer MEDICARE ==
[~2022-12-04] MED LIST changes: +CLOMIPRAMINE HC50 MG PO; +OLANZAPINE5 MG PO; +VITAMIN D350 MC2 PO
[2022-12-10 00:06] LABS: TOTAL (CLO+NORCLO) 488 ng/mL (220-500)
== END | disposition home or self-care (01) ==
LOC: LAB 10:26
PROVIDERS: ATTEND Psychiatry & Neurology Psychiatry
DX: Z79.899 Other long term (current) drug therapy (principal)

== ENCOUNTER → 2023-01-01 | Outpatient (CLI) | payer MEDICARE ==
[2023-01-07 01:06] LABS: TOTAL (CLO+NORCLO) 700 ng/mL (220-500)
== END | disposition home or self-care (01) ==
LOC: LAB 14:58
PROVIDERS: ATTEND Physician Assistant
DX: Z51.81 Encounter for therapeutic drug level monitoring (principal)

== ENCOUNTER → 2023-05-08 | Outpatient (CLI) | payer MEDICARE ==
[2023-05-12 20:07] LABS: TOTAL (CLO+NORCLO) 378 ng/mL (220-500)
== END | disposition home or self-care (01) ==
LOC: LAB 10:35
PROVIDERS: ATTEND Physician Assistant
DX: Z51.81 Encounter for therapeutic drug level monitoring (principal)

== ENCOUNTER → 2023-10-01 | Outpatient (CLI) | payer MEDICARE ==
[2023-10-01 10:18] LABS: BASO # 0.1 10*3/uL (0.0-0.1); BASO % 0.7 % (0.0-1.0); EOS # 0.1 10*3/uL (0.0-0.4); EOS % 1.3 % (1.0-4.0); HEMATOCRIT 47.6 % (42.0-52.0); LYMPH % 24.3 % (27.0-41.0); MEAN CELL VOLUME 94.6 fl (80.0-94.0); MEAN CORPUSCULAR HGB 30.8 pg (27.0-31.0); MEAN CORPUSCULAR HGB CONC 32.6 g/dl (33.0-37.0); MEAN PLATELET VOLUME 10.7 fl (9.6-12.3); MONO # 0.6 10*3/uL (0.1-1.0); MONO % 6.8 % (3.0-9.0); NEUT # 5.5 10*3/uL (2.3-7.9); NEUT % 66.4 % (47.0-73.0); PLATELET COUNT AUTOMATED 152 10*3/uL (130-400); RED BLOOD COUNT 5.03 10*6/uL (4.50-5.90); RED CELL DISTRI WIDTH 13.1 % (0-14.5); WHITE BLOOD COUNT 8.2 10*3/uL (4.8-10.8)
[2023-10-01 10:51] LABS: VITAMIN D, 25-HYDROXY 36.4 ng/mL (30-100)
[2023-10-01 10:52] LABS: ALKALINE PHOSPHATASE 102 U/L (46-116); BUN 31 mg/dl (9-23); CHLORIDE 109 mmol/L (98-107); CHOLESTEROL 159 mg/dL (<200); FREE T4 0.78 ng/dl (0.89-1.76); LDL CHOLESTEROL 84 mg/dL (9-159); POTASSIUM 4.1 mmol/L (3.4-5.1); SGPT/ALT 22 U/L (5-49); TOTAL PROTEIN 7.4 gm/dL (6.0-8.0); TRIGLYCERIDES 224 mg/dl (<150)
== END | disposition home or self-care (01) ==
LOC: LAB 09:26
PROVIDERS: ATTEND Internal Medicine
DX: I10 Essential (primary) hypertension (principal); E78.2 Mixed hyperlipidemia; E55.9 Vitamin D deficiency, unspecified; D50.9 Iron deficiency anemia, unspecified

== ENCOUNTER 2024-11-15 13:56 | Emergency (ER) | payer OTHER ==
[~2024-11-15] VITALS: Wt 93.0 kg
[~2024-11-15 13:56] MED LIST changes: +CLOMIPRAMINE HC75 MG PO; +FERRO-TIME325 MG PO; +LORATADINE-D 11 EACH PO; +MIDODRINE HCL10 MG PO; +MIDODRINE HCL2.5 MG PO; +MONTELUKAST SOD10 MG PO; +PROTONIX TR40 MG PO; +QUETIAPINE FUM150 M1 PO; +VIBRA-TAB100 MG PO; +[UNRECOGNIZED DRUG - REMARK]; +[UNRECOGNIZED DRUG - REMARK] PO
[2024-11-15 15:23] LABS: BASO # 0.1 10*3/uL (0.0-0.1); BASO % 0.5 % (0.0-1.0); EOS # 0.1 10*3/uL (0.0-0.4); EOS % 0.9 % (1.0-4.0); HEMATOCRIT 45.2 % (42.0-52.0); MEAN CELL VOLUME 92.8 fl (80.0-94.0); MEAN CORPUSCULAR HGB 30.4 pg (27.0-31.0); MEAN CORPUSCULAR HGB CONC 32.7 g/dl (33.0-37.0); MEAN PLATELET VOLUME 10.4 fl (9.6-12.3); MONO # 0.8 10*3/uL (0.1-1.0); MONO % 7.7 % (3.0-9.0); NEUT # 8.5 10*3/uL (2.3-7.9); NEUT % 78.4 % (47.0-73.0); PLATELET COUNT AUTOMATED 159 10*3/uL (130-400); RED BLOOD COUNT 4.87 10*6/uL (4.50-5.90); RED CELL DISTRI WIDTH 13.4 % (0-14.5); WHITE BLOOD COUNT 10.8 10*3/uL (4.8-10.8)
[2024-11-15 15:46] LABS: POTASSIUM 4.1 mmol/L (3.4-5.1); TOTAL PROTEIN 7.4 gm/dL (6.0-8.0)
[2024-11-15] MEDS ORDERED: PANTOPRAZOLE SO40 MG PO (16:03)
== END 2024-11-15 16:07 | disposition home or self-care (01) ==
LOC: ED 13:56
PROVIDERS: Nurse Practitioner Family
DX: K21.9 Gastro-esophageal reflux disease without esophagitis (principal); K76.0 Fatty (change of) liver, not elsewhere classified; N18.9 Chronic kidney disease, unspecified; J44.9 Chronic obstructive pulmonary disease, unspecified; F17.200 Nicotine dependence, unspecified, uncomplicated; Z79.899 Other long term (current) drug therapy

== ENCOUNTER → 2024-11-22 | Outpatient (CLI) | payer OTHER ==
[2024-11-22 08:09] LABS: BASO % 0.4 % (0.0-1.0); EOS # 0.2 10*3/uL (0.0-0.4); EOS % 1.6 % (1.0-4.0); HEMATOCRIT 44.2 % (42.0-52.0); MEAN CELL VOLUME 92.7 fl (80.0-94.0); MEAN CORPUSCULAR HGB 30.4 pg (27.0-31.0); MEAN CORPUSCULAR HGB CONC 32.8 g/dl (33.0-37.0); MEAN PLATELET VOLUME 10.4 fl (9.6-12.3); MONO # 0.8 10*3/uL (0.1-1.0); MONO % 7.1 % (3.0-9.0); NEUT % 75.4 % (47.0-73.0); PLATELET COUNT AUTOMATED 159 10*3/uL (130-400); RED BLOOD COUNT 4.77 10*6/uL (4.50-5.90); RED CELL DISTRI WIDTH 13.7 % (0-14.5); WHITE BLOOD COUNT 10.6 10*3/uL (4.8-10.8)
[2024-11-22 08:38] LABS: POTASSIUM 4.1 mmol/L (3.4-5.1); TOTAL PROTEIN 7.4 gm/dL (6.0-8.0)
== END | disposition home or self-care (01) ==
LOC: LAB 07:41
PROVIDERS: ATTEND Physician Assistant
DX: Z51.81 Encounter for therapeutic drug level monitoring (principal)

== ENCOUNTER → 2025-01-19 | Outpatient (CLI) | payer OTHER | END | disposition home or self-care (01) | LOC: CT 01:15 | PROVIDERS: ATTEND Internal Medicine | DX: Z12.2 Encounter for screening for malignant neoplasm of respiratory organs (principal); J43.9 Emphysema, unspecified; K80.20 Calculus of gallbladder without cholecystitis without obstruction; K76.0 Fatty (change of) liver, not elsewhere classified; K44.9 Diaphragmatic hernia without obstruction or gangrene; I25.10 Atherosclerotic heart disease of native coronary artery without angina pectoris; F17.210 Nicotine dependence, cigarettes, uncomplicated ==

== ENCOUNTER 2025-01-25 09:50 | Inpatient (IN) | payer OTHER ==
[~2025-01-25] VITALS: Ht 177.8 cm; Wt 91.6 kg
[2025-01-25] VITALS (7 sets, daily range): BP systolic 86–133; BP diastolic 57–85
[2025-01-25] MEDS ORDERED: Albuterol Sulfate 2.5 MG/3 ML VIAL NEB ONE (09:55)
[2025-01-25] MEDS ORDERED: methylPREDNISolone sod succ 125 MG VIAL IV ONE (09:55)
[2025-01-25] MEDS ORDERED: SODIUM CHLORIDE 0.9% 1,000 ML IV ONE ×2 (10:00→10:55)
[2025-01-25 10:22] LABS: HEMATOCRIT 41.3 % (42.0-52.0)
[2025-01-25 10:29] LABS: MEAN CELL VOLUME 93.2 fl (80.0-94.0); MEAN CORPUSCULAR HGB 31.2 pg (27.0-31.0); MEAN CORPUSCULAR HGB CONC 33.4 g/dl (33.0-37.0); MEAN PLATELET VOLUME 10.3 fl (9.6-12.3); PLATELET COUNT AUTOMATED 140 10*3/uL (130-400); RED BLOOD COUNT 4.43 10*6/uL (4.50-5.90); RED CELL DISTRI WIDTH 14.5 % (0-14.5); WHITE BLOOD COUNT 18.7 10*3/uL (4.8-10.8)
[2025-01-25 10:42] LABS: MANUAL DIFF REFLEX YES
[2025-01-25 10:43] LABS: POTASSIUM 3.7 mmol/L (3.4-5.1)
[2025-01-25] MEDS ORDERED: Midodrine Hydrochloride 5 MG TAB PO ONE (10:45)
[2025-01-25 10:46] LABS: PLATELET SUFFICIENCY NORMAL (NORMAL); TOTAL CELLS COUNTED 100 #CELLS
[2025-01-25] MEDS ORDERED: AZITHROMYCIN 250 ML IV ONE (10:55)
[2025-01-25] MEDS ORDERED: cefTRIAXone Sodium 1 GM/10 ML SYR IV ONE (10:55)
[2025-01-25 15:14] LABS: BILIRUBIN Negative (Negative); BLOOD Negative (Negative); CLARITY Clear (Clear); COLOR Yellow (Yellow); GLUCOSE Negative (Negative); KETONE Trace (Negative); LEUKO ESTERASE Negative (Negative); NITRITE Negative (Negative); PH 5.5 (4.5-8.0); SPECIFIC GRAVITY 1.015 (1.001-1.030); UROBILINOGEN 0.2 E.U./dl (0.0-1.0)
[2025-01-25 16:06] LABS: CALCIUM OXALATE CRYSTALS Trace; MUCOUS 2+
[2025-01-25] MEDS ORDERED: SODIUM CHLORIDE 0.9% 1,000 ML IV SCH (17:55)
[2025-01-25] MEDS ORDERED: ATORVASTATIN CALCIUM 40 MG TABLET PO SCH (18:00)
[2025-01-25] MEDS ORDERED: BENZTROPINE MESYLATE 0.5 MG TAB PO SCH (22:00)
[2025-01-25] MEDS ORDERED: fluvoxaMINE Maleate 50 MG TAB PO SCH (22:00)
[2025-01-25] MEDS ORDERED: Doxycycline Hyclate 100 MG in SODIUM CHLORIDE 0.9% 250 ML IV SCH (22:00)
[2025-01-25] MEDS ORDERED: MAGNESIUM SULFATE 50 ML IV ONE (23:30)
[2025-01-25] MEDS ORDERED: Albuterol Sulf/Ipratropium 3 ML VIAL NEB SCH (23:50)
[2025-01-26] VITALS: BP 127/77
[2025-01-26] MEDS ORDERED: Albuterol Sulf/Ipratropium 3 ML VIAL NEB ONE (00:09)
[2025-01-26 04:00] VITALS: BP 136/79
[2025-01-26 05:37] LABS: ALKALINE PHOSPHATASE 68 U/L (46-116); BUN 26 mg/dl (9-23); CHLORIDE 110 mmol/L (98-107); POTASSIUM 3.7 mmol/L (3.4-5.1); SGPT/ALT 16 U/L (5-49)
[2025-01-26 05:57] LABS: HEMATOCRIT 36.6 % (42.0-52.0); MEAN CELL VOLUME 91.7 fl (80.0-94.0); MEAN CORPUSCULAR HGB 30.8 pg (27.0-31.0); MEAN CORPUSCULAR HGB CONC 33.6 g/dl (33.0-37.0); MEAN PLATELET VOLUME 11.1 fl (9.6-12.3); PLATELET COUNT AUTOMATED 125 10*3/uL (130-400); RED BLOOD COUNT 3.99 10*6/uL (4.50-5.90); RED CELL DISTRI WIDTH 14.6 % (0-14.5); WHITE BLOOD COUNT 19.8 10*3/uL (4.8-10.8)
[2025-01-26] MEDS ORDERED: Pantoprazole Sodium 40 MG TAB PO SCH (06:00)
[2025-01-26 06:47] LABS: MANUAL DIFF REFLEX YES
[2025-01-26 06:49] LABS: PLATELET SUFFICIENCY LOW (NORMAL); TOTAL CELLS COUNTED 100 #CELLS
[2025-01-26 06:50] LABS: BURR CELLS FEW; OVALOCYTES FEW
[2025-01-26 08:00] VITALS: BP 114/67
[2025-01-26] MEDS ORDERED: Midodrine Hydrochloride 5 MG TAB PO SCH (08:00)
[2025-01-26] MEDS ORDERED: OLANZAPINE 5 MG SL SCH (10:00)
[2025-01-26] MEDS ORDERED: clomiPRAMINE Hydrochloride 25 MG CAP PO SCH (10:00)
[2025-01-26] MEDS ORDERED: Enoxaparin Sodium 40 MG/0.4 ML SYR SC SCH (10:00)
[2025-01-26] MEDS ORDERED: cefTRIAXone Sodium 1 GM in SYRINGE INFUSION 10 ML IV SCH (11:00)
[2025-01-26 12:00] VITALS: BP 122/70
[2025-01-26 15:58] LABS: ABG BASE EXCESS -2.3 mmol/L (-2.0-3.0); ABG O2 SATURATION 93.1 % (94.0-98.0); ARTERIAL BLOOD GAS PH 7.398 (7.350-7.450); ARTERIAL BLOOD GAS PO2 66.2 mmHg (83.0-108.0)
[2025-01-26 16:00] VITALS: BP 113/77
[2025-01-26 20:00] VITALS: BP 127/83
[2025-01-26] MEDS ORDERED: GUAIFENESIN 600 MG TAB ER PO SCH (22:00)
[2025-01-26] MEDS ORDERED: Albuterol Sulf/Ipratropium 3 ML VIAL NEB SCH (23:50)
[2025-01-27] VITALS: BP 142/89
[2025-01-27 04:00] VITALS: BP 145/89
[2025-01-27 05:22] LABS: ALKALINE PHOSPHATASE 71 U/L (46-116); BUN 24 mg/dl (9-23); CHLORIDE 111 mmol/L (98-107); POTASSIUM 3.8 mmol/L (3.4-5.1); SGPT/ALT 15 U/L (5-49)
[2025-01-27 06:08] LABS: BASO % 0.1 % (0.0-1.0); EOS % 0.2 % (1.0-4.0); HEMATOCRIT 37.4 % (42.0-52.0); MEAN CORPUSCULAR HGB 30.7 pg (27.0-31.0); MEAN CORPUSCULAR HGB CONC 32.6 g/dl (33.0-37.0); MEAN PLATELET VOLUME 11.2 fl (9.6-12.3); MONO # 0.7 10*3/uL (0.1-1.0); NEUT # 12.2 10*3/uL (2.3-7.9); NEUT % 87.6 % (47.0-73.0); PLATELET COUNT AUTOMATED 126 10*3/uL (130-400); RED BLOOD COUNT 3.98 10*6/uL (4.50-5.90); RED CELL DISTRI WIDTH 15.1 % (0-14.5)
[2025-01-27 08:00] VITALS: BP 122/83
[2025-01-27] MEDS ORDERED: Phosphorus/Potassium 1.45 GM PACKET PO SCH (08:00)
[2025-01-27 12:00] VITALS: BP 127/85
[2025-01-27] MEDS ORDERED: cefTRIAXone Sodium 1 GM in SYRINGE INFUSION 10 ML IV ONE (14:00)
[2025-01-27 16:00] VITALS: BP 123/72
[2025-01-27 20:00] VITALS: BP 131/80
[2025-01-28] VITALS: BP 147/72
[2025-01-28 08:00] VITALS: BP 123/66
[2025-01-28] MEDS ORDERED: cefTRIAXone Sodium 2 GM in SYRINGE INFUSION 20 ML IV SCH (10:00)
[2025-01-28 10:11] LABS: BASO % 0.2 % (0.0-1.0); EOS # 0.2 10*3/uL (0.0-0.4); EOS % 2.3 % (1.0-4.0); MEAN CELL VOLUME 93.6 fl (80.0-94.0); MEAN CORPUSCULAR HGB 30.8 pg (27.0-31.0); MEAN CORPUSCULAR HGB CONC 32.9 g/dl (33.0-37.0); MEAN PLATELET VOLUME 10.4 fl (9.6-12.3); MONO # 0.6 10*3/uL (0.1-1.0); MONO % 5.9 % (3.0-9.0); NEUT # 7.8 10*3/uL (2.3-7.9); NEUT % 80.3 % (47.0-73.0); PLATELET COUNT AUTOMATED 127 10*3/uL (130-400); RED BLOOD COUNT 4.06 10*6/uL (4.50-5.90); RED CELL DISTRI WIDTH 14.7 % (0-14.5); WHITE BLOOD COUNT 9.7 10*3/uL (4.8-10.8)
[2025-01-28 10:30] LABS: ALKALINE PHOSPHATASE 76 U/L (46-116); BUN 18 mg/dl (9-23); CHLORIDE 102 mmol/L (98-107); POTASSIUM 3.8 mmol/L (3.4-5.1); SGPT/ALT 17 U/L (5-49); TOTAL PROTEIN 6.6 gm/dL (6.0-8.0)
[2025-01-28 12:00] VITALS: BP 114/68
[2025-01-28 16:00] VITALS: BP 135/78
[2025-01-28 20:00] VITALS: BP 130/83
[2025-01-28] MEDS ORDERED: ACETAMINOPHEN 325 MG TAB PO PRN (21:25)
[2025-01-29] VITALS: BP 128/90
[2025-01-29 05:17] LABS: ALKALINE PHOSPHATASE 71 U/L (46-116); BUN 17 mg/dl (9-23); CHLORIDE 103 mmol/L (98-107); POTASSIUM 4.1 mmol/L (3.4-5.1); SGPT/ALT 16 U/L (5-49); TOTAL PROTEIN 6.2 gm/dL (6.0-8.0)
[2025-01-29 06:12] LABS: BASO % 0.6 % (0.0-1.0); EOS # 0.2 10*3/uL (0.0-0.4); EOS % 3.2 % (1.0-4.0); HEMATOCRIT 37.2 % (42.0-52.0); MEAN CELL VOLUME 94.2 fl (80.0-94.0); MEAN CORPUSCULAR HGB 30.6 pg (27.0-31.0); MEAN CORPUSCULAR HGB CONC 32.5 g/dl (33.0-37.0); MEAN PLATELET VOLUME 10.9 fl (9.6-12.3); MONO # 0.6 10*3/uL (0.1-1.0); MONO % 8.3 % (3.0-9.0); NEUT # 5.2 10*3/uL (2.3-7.9); NEUT % 72.1 % (47.0-73.0); PLATELET COUNT AUTOMATED 123 10*3/uL (130-400); RED BLOOD COUNT 3.95 10*6/uL (4.50-5.90); RED CELL DISTRI WIDTH 14.6 % (0-14.5); WHITE BLOOD COUNT 7.2 10*3/uL (4.8-10.8)
[2025-01-29 08:00] VITALS: BP 124/78
[2025-01-29 12:00] VITALS: BP 147/91
[2025-01-29 16:00] VITALS: BP 122/73
[2025-01-29 20:00] VITALS: BP 133/73
[2025-01-30] VITALS: BP 114/70
[2025-01-30 08:00] VITALS: BP 106/75
[2025-01-30 12:00] VITALS: BP 121/82
[2025-01-30] MEDS ORDERED: Cyclobenzaprine Hydrochlorid 10 MG TAB PO ONE (12:00)
[2025-01-30] MEDS ORDERED: HYDROmorphONE Hydrochloride 0.5 MG/0.5 ML SYRINGE IV ONE (12:00)
[2025-01-30 15:07] LABS: MYCOPLASMA PNEUMONIAE IGG <100 U/mL (0-99); MYCOPLASMA PNEUMONIAE IGM <770 U/mL (0-769)
[2025-01-30 16:00] VITALS: BP 125/77
[2025-01-30 20:00] VITALS: BP 122/75
[2025-01-31] VITALS: BP 122/75
[2025-01-31 08:00] VITALS: BP 122/71
[2025-01-31 12:00] VITALS: BP 116/71
[2025-01-31 16:00] VITALS: BP 104/61
[2025-01-31 20:00] VITALS: BP 124/79
[2025-02-01] VITALS: BP 125/74
[2025-02-01 08:00] VITALS: BP 111/77
[2025-02-01 12:00] VITALS: BP 108/70
[2025-02-01 16:00] VITALS: BP 116/72
[2025-02-01 20:00] VITALS: BP 103/52
[2025-02-01] MEDS ORDERED: Doxycycline Hyclate 100 MG CAPSULE PO SCH (22:00)
[2025-02-01] MEDS ORDERED: Amoxicillin/Clavulanate Pota 875 MG TAB PO SCH (22:00)
[2025-02-02] VITALS: BP 105/60
[2025-02-02 05:37] LABS: BUN 23 mg/dl (9-23); CHLORIDE 102 mmol/L (98-107); POTASSIUM 4.7 mmol/L (3.4-5.1)
[2025-02-02 06:09] LABS: HEMATOCRIT 39.9 % (42.0-52.0); MEAN CORPUSCULAR HGB 29.8 pg (27.0-31.0); MEAN CORPUSCULAR HGB CONC 32.1 g/dl (33.0-37.0); MEAN PLATELET VOLUME 10.7 fl (9.6-12.3); PLATELET COUNT AUTOMATED 155 10*3/uL (130-400); RED BLOOD COUNT 4.29 10*6/uL (4.50-5.90); RED CELL DISTRI WIDTH 14.5 % (0-14.5); WHITE BLOOD COUNT 6.2 10*3/uL (4.8-10.8)
[2025-02-02 06:11] LABS: MANUAL DIFF REFLEX YES
[2025-02-02 07:00] LABS: BASOPHILS 1 % (0-1); TOTAL CELLS COUNTED 100 #CELLS
[2025-02-02 07:01] LABS: BURR CELLS FEW; OVALOCYTES FEW; PLATELET SUFFICIENCY NORMAL (NORMAL); POLYCHROMASIA SLIGHT
[2025-02-02 08:00] VITALS: BP 109/77
[2025-02-02 12:00] VITALS: BP 95/65
[2025-02-02] MEDS ORDERED: DOXYCYCLINE HY100 M3 PO (12:38)
[2025-02-02] MEDS ORDERED: AMOX-CLAV 875-1 EACH PO (12:38)
[2025-02-02 16:00] VITALS: BP 109/73
[2025-02-02 20:00] VITALS: BP 106/61
[2025-02-03] VITALS: BP 110/60
[2025-02-03 08:00] VITALS: BP 110/79
[2025-02-03 12:00] VITALS: BP 93/57
[2025-02-03 16:00] VITALS: BP 104/66
== END 2025-02-03 19:14 | disposition home or self-care (01) | DRG 871 ==
LOC: ED 09:50 → 4E 11:50 → ICCU 11:50 → EDHOLD 11:50 → ICCU 16:41 → 4E 01-31 12:51
PROVIDERS: Emergency Medicine; Internal Medicine Critical Care Medicine; Internal Medicine Nephrology; ADMIT Internal Medicine; ATTEND Internal Medicine
PROC: 5A0955A Assistance with Respiratory Ventilation, Greater than 96 Consecutive Hours, High Flow/Velocity Cannula (ICD-10-PCS; principal; 2025-01-25)
DX: A41.9 Sepsis, unspecified organism (principal); J18.9 Pneumonia, unspecified organism; N17.0 Acute kidney failure with tubular necrosis; J96.01 Acute respiratory failure with hypoxia; E87.20 Acidosis, unspecified; F33.3 Major depressive disorder, recurrent, severe with psychotic symptoms; J44.0 Chronic obstructive pulmonary disease with (acute) lower respiratory infection; R16.1 Splenomegaly, not elsewhere classified; K80.50 Calculus of bile duct without cholangitis or cholecystitis without obstruction; Z20.822 Contact with and (suspected) exposure to COVID-19; F42.9 Obsessive-compulsive disorder, unspecified; N18.9 Chronic kidney disease, unspecified; K21.9 Gastro-esophageal reflux disease without esophagitis; F17.210 Nicotine dependence, cigarettes, uncomplicated; D64.9 Anemia, unspecified; E78.5 Hyperlipidemia, unspecified; E83.42 Hypomagnesemia; D69.6 Thrombocytopenia, unspecified; E83.39 Other disorders of phosphorus metabolism; K44.9 Diaphragmatic hernia without obstruction or gangrene; Z79.899 Other long term (current) drug therapy; Z79.01 Long term (current) use of anticoagulants; Z79.2 Long term (current) use of antibiotics; Z82.49 Family history of ischemic heart disease and other diseases of the circulatory system; Z91.199 Patient's noncompliance with other medical treatment and regimen due to unspecified reason